=== PATIENT | female | born 1940 | race Caucasian/White ===

== ENCOUNTER → 2016-08-30 | Outpatient (CLI) | payer MEDICARE, OTHER | END | disposition home or self-care (01) | LOC: GMAB 11:55 | PROVIDERS: ATTEND Family Medicine | DX: I10 Essential (primary) hypertension (principal) ==

== ENCOUNTER → 2017-10-18 | Outpatient (CLI) | payer MEDICARE, OTHER | LOC: GMAE 14:16 | PROVIDERS: ATTEND Family Medicine | DX: I10 Essential (primary) hypertension (principal) ==

== ENCOUNTER → 2019-01-24 | Outpatient (CLI) | payer MEDICARE, OTHER | LOC: GMAE 10:32 | PROVIDERS: ATTEND Family Medicine | DX: I10 Essential (primary) hypertension (principal); E11.9 Type 2 diabetes mellitus without complications; E78.2 Mixed hyperlipidemia ==

== ENCOUNTER → 2019-02-05 | Outpatient (CLI) | payer MEDICARE, OTHER | LOC: GMAE 12:46 | PROVIDERS: ATTEND Family Medicine | DX: R94.6 Abnormal results of thyroid function studies (principal); I10 Essential (primary) hypertension ==

== ENCOUNTER → 2019-09-19 | Outpatient (CLI) | payer MEDICARE, OTHER ==
--- NOTE | 2019-09-20 09:20 | MRI ---
EXAM DESCRIPTION: Brain w/oContrast CLINICAL HISTORY: 78 years, Female, MYOPATHY COMPARISON: None available. TECHNIQUE: Multiplanar multi sequence images of the brain were obtained without gadolinium contrast. FINDINGS: Diffusion-weighted images show no diffusion restriction. Midline structures, including the corpus callosum, pituitary and brainstem, are unremarkable. Generalized age-related volume loss with ex vacuo prominence of the ventricles. No intraventricular mass. Physiologic vascular flow voids are noted. The internal auditory canals and cerebellopontine angles are unremarkable. There are no extra-axial fluid collections. There are irregular areas of increased T2/FLAIR signal involving periventricular and subcortical white matter in both cerebral hemispheres, nonspecific but likely related to chronic ischemic microvascular disease. There is no posterior fossa lesion. Visualized paranasal sinuses and orbits are unremarkable. There is no calvarial lesion. IMPRESSION: Age-related volume loss and chronic ischemic microvascular changes without cortical infarct, mass or other intracranial abnormality to explain provided history. Electronically signed by: Cruz Hernández MD 09/20/2019 9:19 AM CDT
== END ==
LOC: MRI 13:50
PROVIDERS: ATTEND Family Medicine
DX: G72.9 Myopathy, unspecified (principal); G31.1 Senile degeneration of brain, not elsewhere classified; I67.82 Cerebral ischemia

== ENCOUNTER → 2019-09-20 | Outpatient (CLI) | payer MEDICARE, OTHER | LOC: BFHH 14:00 | PROVIDERS: ATTEND Family Medicine | DX: G72.9 Myopathy, unspecified (principal); M62.3 Immobility syndrome (paraplegic); R26.2 Difficulty in walking, not elsewhere classified; E11.9 Type 2 diabetes mellitus without complications; F33.0 Major depressive disorder, recurrent, mild; F51.01 Primary insomnia ==

== ENCOUNTER → 2019-10-02 | Outpatient (CLI) | payer MEDICARE, OTHER ==
--- NOTE | 2019-10-03 15:39 | US ---
EXAM DESCRIPTION: Liver: ULTRASOUND. CLINICAL HISTORY: ABNORMAL RESULTS OF LIVER FUNCTIONS STUDIES COMPARISON: None. TECHNIQUE: Transabdominal scannin-dimensional and Doppler modes. FINDINGS: Gallbladder: normal size, shape, echogenicity; no intraluminal stones or sludge. No fluid around the gallbladder. No wall thickening. 2.6 mm. Non-tender with transducer pressure. Common bile duct: caliber 4.6 mm within normal limits. Liver: Heterogeneously increased echogenicity; focal increased echogenicity 5 x 4.5 mm diameter. Contour liver capsule smooth where seen. No fluid around the liver. Intrahepatic biliary ducts normal caliber. Doppler hepatopedal flow portal vein. 7 mm. Long axis right lobe 13.2 cm. Pancreas: normal size and echogenicity. Duct not seen. Right kidney: long axis measures 7.8 cm. Volume 83.2 mL. Increased echogenicity, equal to the liver. 10 mm cortical thickness. No echogenic stones; no hydronephrosis. Aorta proximal: 1.7 cm diameter normal caliber. IMPRESSION: 1. Heterogeneously increased echogenicity in the liver. Not enlarged. Focal echogenic lesion right liver most likely represents hemangioma. Consider follow-up MRI scan without and with gadolinium IV contrast if liver function continues to be abnormal. Vascularity and ducts and physiologic. Smooth capsule with no ascites. Pancreas is negative. 2. Increased echogenicity in the right renal cortex with cortical thinning but no hydronephrosis or echogenic stones. These may represent physiologic aging changes. Normal caliber of the proximal abdominal aorta. 3. Negative findings gallbladder and normal caliber of the common bile duct. Electronically signed by: Manpreet Huffman MD 10/03/2019 3:37 PM CDT
== END | disposition home or self-care (01) ==
LOC: US 12:46
PROVIDERS: ATTEND Family Medicine
DX: R94.5 Abnormal results of liver function studies (principal)

== ENCOUNTER 2019-10-24 06:07 | Observation (INO) | payer MEDICARE, OTHER ==
--- NOTE | 2019-10-24 06:48 | ED.PDOC ---
History of Present Illness - General Chief Complaint: General Stated Complaint: she couldn't get out of bed, back hurts Time Seen by Provider: 10/24/19 06:28 Source: patient Exam Limitations: no limitations - History of Present Illness Initial Comments: The patient is a 78-year-old female presented emergency room secondary to progressive generalized weakness. Apparently the patient has a diagnosis of polymyositis diagnosed with Dr. Mcmullen. She has severe proximal musculature weakness. The patient is unable to stand and walk. She is even been unable to turn herself to roll over in bed. She is developing significant excoriation to her posterior secondary to this. No shortness of breath. No chest pain. No syncope. The patient was unable to roll over in bed to get a drink of water this morning and she panicked. She was alone at home by herself. She reports that she has been able to hire care during the day to help her move around but at night she is by herself, and she simply cannot move around at this point. The patient reports that she was supposed to be getting IV daily steroids. The hospital under Dr. Mcmullen's direction however she had a falling out with the infusion nurses and has stopped getting them. The patient is not certain that she can make it at home alone by herself anymore. Apparently the patient did do a stent and encompass a month or 2 ago without any significant benefit. The patient has recently had MRIs of the brain and imaging of the liver as well. I do not have any the details of the work-up otherwise done by Dr. Mcmullen. Laboratory work from the clinic is not yet available. The patient is feeling much better simply being up here where we can help her move around. Timing/Duration: constant, getting worse Severity: severe Improving Factors: nothing Worsening Factors: nothing Associated Symptoms: weakness Allergies/Adverse Reactions: Allergies Morphine Allergy (Verified 10/24/19 06:30) Home Medications: Ambulatory Orders Citalopram Hydrobromide [Celexa] 40 mg PO QD 02/12/12 Lisinopril 10 mg PO DAILY 02/12/12 Zolpidem Tartrate [Ambien] 10 mg PO HS 02/12/12 Atorvastatin Calcium [Lipitor] 10 mg PO 10/24/19 Escitalopram [Lexapro] 20 mg PO 10/24/19 Review of Systems - Review of Systems Constitutional: States: malaise EENTM: States: no symptoms reported Respiratory: States: no symptoms reported Cardiology: States: no symptoms reported Gastrointestinal/Abdominal: States: no symptoms reported Genitourinary: States: no symptoms reported - The patient does wear an adult diaper at night as she is unable to get out of bed to get to the bathroom Musculoskeletal: States: see HPI Skin: States: see HPI Neurological: States: anxiety Endocrine: States: no symptoms reported All other Systems: No Change from Baseline Past Medical History (General) - Patient Medical History Hx Seizures: No Hx Stroke: No Hx Dementia: Yes Hx Asthma: No Hx of COPD: Yes - hx smoker for 50 years Hx Cardiac Disorders: No Hx Congestive Heart Failure: No Hx Pacemaker: No Hx Hypertension: Yes Hx Thyroid Disease: No Hx Diabetes: Yes - hx Hx Gastroesophageal Reflux: No Hx Renal Disease: No Hx Cancer: No Hx of HIV: No Hx Hepatitis C: No Hx MRSA: No Surgical History: appendectomy, tonsillectomy, Hysterectomy - Vaccination History Hx Tetanus, Diphtheria Vaccination: Yes - 3 years ago Hx Influenza Vaccination: Yes Hx Pneumococcal Vaccination: Yes - Social History Hx Tobacco Use: Yes - quit 5 years ago after 50 years of smoking Hx Chewing Tobacco Use: No Hx Alcohol Use: Yes - social Hx Substance Use: No Hx Substance Use Treatment: No Hx Depression: Yes Hx Physical Abuse: No Hx Emotional Abuse: No Hx Suspected Abuse: No - Female History Patient : No - Triage Comment ED Triage Comment: states she has private care takers out of [place] during the day Family Medical History - Family History Mother Family History: Unknown Physical Exam - Physical Exam General Appearance: Alert, Anxious, No apparent distress Eye Exam: bilateral normal Ears, Nose, Throat: hearing grossly normal, normal pharynx Neck: full range of motion, supple Respiratory: lungs clear, normal breath sounds, no respiratory distress, no ac cessory muscle use Cardiovascular/Chest: normal peripheral pulses, regular rate, rhythm, no edema Peripheral Pulses: radial,right: 2+, radial,left: 2+, dorsalis pedis,right: 2+, dorsalis pedis,left: 2+ Gastrointestinal/Abdominal: non tender, soft Rectal Exam: deferred Back Exam: no CVA tenderness Extremity: normal range of motion - The patient has significantly limited active motion at the knees and hips as well as the shoulder girdle. 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 Skin Exam: normal color - With the exception of her excoriated buttocks from being unable to get to the bathroom. Comments: Vital Signs - 24 hr 10/24/19 06:07 Temperature 97.5 F L Pulse Rate [ 91 H monitor] Respiratory 16 Rate Blood Pressure 164/65 [Left Arm] O2 Sat by Pulse 87 L Oximetry Progress - Progress Progress: 10/24/19 06:53 The patient is a 78-year-old female presented emergency room secondary to her gradual progressive weakness, presumed to be associated with polymyositis. We will do laboratory work here as the patient has had issues with pneumonias and urinary tract infections in the past complicating her care. The patient additionally does appear to have some mild hypoxia at baseline. I am uncertain if she is having ventilatory issues as well. She did did a pparently have many years of smoking. The patient will be tested for coronavirus and we will do an ABG and the patient will receive a breathing treatment and see if this helps. Chest x-ray will also be done. Laboratory work is being sent off. The patient had a Feliz catheter placed to check for urinary tract infection but also to allow for healing of her sacral excoriations. The patient will need a social professionals consultation once they are here at the hospital to see if short-term usp care can be arranged for the patient as she is unable to care for herself at night obviously at this point. If no other pathology is found then resumption of the steroid regimen as per Dr. Mcmullen's recommendations are likely recommended. The patient will be followed by the oncoming ER physician. 10/24/19 06:55 emilie villa [phone] Departure - Departure Clinical Impression: Polymyositis, Inability to perform activities of daily living Decubitus skin ulcer Qualifiers: Pressure injury location: sacral region Pressure injury stage: stage 2 Qualified Code(s): L89.152 - Pressure ulcer of sacral region, stage 2 Disposition: Discharge to Home or Self Care Departure Forms: ED Discharge - Pt. Copy, Patient Portal Self Enrollment Referrals: KATERINA OSMAN MD [Primary Care Provider] - 1-2 Weeks Home Medications: Ambulatory Orders Citalopram Hydrobromide [Celexa] 40 mg PO QD 02/12/12 Lisinopril 10 mg PO DAILY 02/12/12 Zolpidem Tartrate [Ambien] 10 mg PO HS 02/12/12 Atorvastatin Calcium [Lipitor] 10 mg PO 10/24/19 Escitalopram [Lexapro] 20 mg PO 10/24/19
[2019-10-24] MEDS ORDERED: IPRATROPIUM/ALBUTEROL 3 ML VIAL NEB ONE ×2 (06:56→08:46)
--- NOTE | 2019-10-24 07:22 | RAD ---
PROCEDURE: XR Chest, 1 View CLINICAL INDICATION: The patient is 78 years old and is Female; increased generalized weakness MAIN TECHNIQUE: Frontal view of the chest. COMPARISON: No relevant prior studies available. FINDINGS: LUNGS: Mild prominence of the interstitial markings. PLEURAL SPACE: Small LEFT pleural effusion. HEART: The heart size is normal. MEDIASTINUM: The mediastinal contour is normal. BONES/JOINTS: There are degenerative changes of the spine identified. VASCULATURE: Pulmonary vascularity is not engorged. IMPRESSION: 1. Small LEFT pleural effusion. 2. Mild prominence of the interstitial markings. This could be from interstitial lung disease or mild pulmonary vascular congestion. Electronically signed by: Jairon Liu MD 10/24/2019 7:20 AM CDT
[2019-10-24] MEDS ORDERED: POTASSIUM CHLORIDE ELIXIR 20 MEQ/15 ML UD PO ONE (08:04)
[2019-10-24] MEDS ORDERED: DEXAMETHASONE INJ 10 MG/ML VIAL IV ONE (08:37)
[2019-10-24] MEDS: DEXAMETHASONE INJ 10 MG/ML VIAL IV ONE ×2 (08:49→08:52)
--- NOTE | 2019-10-24 09:21 | ED.PDOC ---
History of Present Illness - General Chief Complaint: General Stated Complaint: she couldn't get out of bed, back hurts Time Seen by Provider: 10/24/19 06:28 - History of Present Illness Initial Comments: 78 yo F with Polymositis, worsening weakness. Could not get out of bed this morning so came to hospital. Has daytime caretakers, no caretakers at night. Allergies/Adverse Reactions: Allergies Morphine Allergy (Verified 10/24/19 06:30) Home Medications: Ambulatory Orders Citalopram Hydrobromide [Celexa] 40 mg PO QD 02/12/12 Lisinopril 10 mg PO DAILY 02/12/12 Zolpidem Tartrate [Ambien] 10 mg PO HS 02/12/12 Atorvastatin Calcium [Lipitor] 10 mg PO 10/24/19 Escitalopram [Lexapro] 20 mg PO 10/24/19 Review of Systems - Review of Systems Constitutional: States: malaise, weakness EENTM: Denies: blurred vision, throat pain, mouth pain Respiratory: Denies: cough, short of breath, wheezing Cardiology: Denies: chest pain, palpitations Gastrointestinal/Abdominal: Denies: abdominal pain, nausea, vomiting Musculoskeletal: States: back pain Skin: Denies: change in color Neurological: Denies: anxiety, depressed Endocrine: Denies: increased urine, unexplained weight gain, unexplained weight loss Past Medical History (General) - Patient Medical History Hx Seizures: No Hx Stroke: No Hx Dementia: Yes Hx Asthma: No Hx of COPD: Yes - hx smoker for 50 years Hx Cardiac Disorders: No Hx Congestive Heart Failure: No Hx Pacemaker: No Hx Hypertension: Yes Hx Thyroid Disease: No Hx Diabetes: Yes - hx Hx Gastroesophageal Reflux: No Hx Renal Disease: No Hx Cancer: No Hx of HIV: No Hx Hepatitis C: No Hx MRSA: No Surgical History: appendectomy, tonsillectomy, Hysterectomy - Vaccination History Hx Tetanus, Diphtheria Vaccination: Yes - 3 years ago Hx Influenza Vaccination: Yes Hx Pneumococcal Vaccination: Yes - Social History Hx Tobacco Use: Yes - quit 5 years ago after 50 years of smoking Hx Chewing Tobacco Use: No Hx Alcohol Use: Yes - social Hx Substance Use: No Hx Substance Use Treatment: No Hx Depression: Yes Hx Physical Abuse: No Hx Emotional Abuse: No Hx Suspected Abuse: No - Female History Patient : No - Triage Comment ED Triage Comment: states she has private care takers out of [place] during the day Family Medical History - Family History Mother Family History: Unknown Physical Exam - Physical Exam General Appearance: Alert, Comfortable Neck: non-tender, supple Respiratory: chest non-tender, lungs clear, normal breath sounds, no respiratory distress Cardiovascular/Chest: normal peripheral pulses, regular rate, rhythm, no edema, no gallop, no JVD, no murmur Peripheral Pulses: radial,right: 2+, radial,left: 2+ Gastrointestinal/Abdominal: normal bowel sounds, non tender, soft Extremity: other - proximal muscle weakness. Neurologic: vault person II-XII nml as tested, alert, normal mood/affect, oriented x 3 Progress - Progress Progress: 10/24/19 09:18 patient ABG shows Resp alkalosis. Hypokalemia - 2.9, no significant ekg changes. Will give 40 meq of potassium x 1. Discussed with Dr. Palacios. Follows Dr. Casper, was originally on 10 mg of dexamethasone daily for 5 days, then weekly after that. She quit this many weeks ago after having an argument with a staff member. Left message at Dr. Drake bland office. will give one dose of 10 dexamethasone IV now. Attempted to remove oxygen saturations decrease to 88%. no wheezing, no evidence of pneumonia on cxr. denies cough, fever, dyspnea. Will get d-dimer, due to her immobility to rule out PE. COVID negative. I suspect underlying cause is related to her 50 pack year history. Urine appears dirty; however, this may contribute to her underlying weakness. Will get blood culture and treat UTI with ceftriaxone now. Laboratory Results WBC 11.6 K/mm3 (4.8-10.8) H 10/24/19 07:00 RBC 3.74 M/mm3 (4.20-5.40) L 10/24/19 07:00 Hgb 11.6 gm/dL (12.0-16.0) L 10/24/19 07:00 Hct 34.5 % (36.0-47.0) L 10/24/19 07:00 MCV 92.4 fl (81.0-99.0) 10/24/19 07:00 MCH 31.2 pg (27.0-31.0) H 10/24/19 07:00 MCHC 33.7 g/dL (33.0-37.0) 10/24/19 07:00 RDW 13.0 % (11.5-14.5) 10/24/19 07:00 Plt Count 493 K/mm3 (130-400) H 10/24/19 07:00 MPV 7.5 fl (7.40-10.4) 10/24/19 07:00 Absolute Neuts (auto) 10.00 K/uL (1.8-6.8) H 10/24/19 07:00 Absolute Lymphs (auto) 0.80 K/uL (1.0-3.4) L 10/24/19 07:00 Absolute Monos (auto) 0.80 K/uL (0.2-0.8) 10/24/19 07:00 Absolute Eos (auto) 0.00 K/uL (0.0-0.4) 10/24/19 07:00 Absolute Basos (auto) 0.00 K/uL (0.0-0.1) 10/24/19 07:00 Neutrophils % 86.1 % (42.0-78.0) H 10/24/19 07:00 Lymphocytes % 6.9 % (20.0-50.0) L 10/24/19 07:00 Monocytes % 6.5 % (2.0-9.0) 10/24/19 07:00 Eosinophils % 0.2 % (1.0-5.0) L 10/24/19 07:00 Basophils % 0.3 % (0.0-2.0) 10/24/19 07:00 ESR 45 mm/hr (0-30) H 10/24/19 07:00 D-Dimer, Quantitative 317.0 ng/ml (131-400) 10/24/19 07:00 pCO2 25 mmHg (32-45) L 10/24/19 07:32 pO2 143 mmHg (83-108) H* 10/24/19 07:32 HCO3 21.5 mmol/L 10/24/19 07:32 ABG pH 7.538 (7.35-7.45) H 10/24/19 07:32 ABG O2 Saturation 99.6 % (95.0-99.0) H 10/24/19 07:32 ABG Base Excess 0.0 mmol/L 10/24/19 07:32 ABG Deoxyhemoglobin 0.4 % (0.0-5.0) 10/24/19 07:32 Oxyhemoglobin % 98.0 % (94.0-98.0) 10/24/19 07:32 Carboxyhemoglobin % 1.0 % (0.5-1.5) 10/24/19 07:32 Methemoglobin % Sat 0.6 % (0.0-1.5) 10/24/19 07:32 Calc Total Hemoglobin 11.3 g/dL (12.0-16.0) L 10/24/19 07:32 Sodium 134 mmol/L (135-145) L 10/24/19 07:00 Potassium 2.9 mmol/L (3.6-5.0) L 10/24/19 07:00 Chloride 98 mmol/L (101-111) L 10/24/19 07:00 Carbon Dioxide 25 mmol/L (21-31) 10/24/19 07:00 Anion Gap 13.9 (12-18) 10/24/19 07:00 BUN 7 mg/dL (7-18) 10/24/19 07:00 Creatinine 0.43 mg/dL (0.6-1.3) L 10/24/19 07:00 BUN/Creatinine Ratio 16.3 (10-20) 10/24/19 07:00 Random Glucose 104 mg/dL (70-105) 10/24/19 07:00 Serum Osmolality 266.5 mOsm/L (275-295) L 10/24/19 07:00 Lactic Acid 1.0 mmol/L (0.5-2.2) 10/24/19 07:00 Calcium 7.7 mg/dL (8.4-10.2) L 10/24/19 07:00 Magnesium 1.9 mg/dL (1.8-2.5) 10/24/19 07:00 Total Bilirubin 0.9 mg/dL (0.2-1.0) 10/24/19 07:00 AST 111 IU/L (10-42) H 10/24/19 07:00 ALT 142 IU/L (10-60) H 10/24/19 07:00 Alkaline Phosphatase 94 IU/L (42-121) 10/24/19 07:00 Creatine Kinase 2800 IU/L (26-140) H* 10/24/19 07:00 CK-MB (CK-2) 97.9 ng/mL (0.0-4.4) H* 10/24/19 07:00 CK-MB (CK-2) % 3.50 % (0.0-4.3) 10/24/19 07:00 Troponin I 0.02 ng/mL (0.01-0.05) 10/24/19 07:00 C-Reactive Protein 7.8 mg/dL (0-1.0) H 10/24/19 07:00 B-Natriuretic Peptide 36.9 pg/ml (0-100) 10/24/19 07:00 Serum Total Protein 5.4 gm/dL (6.4-8.2) L 10/24/19 07:00 Albumin 2.4 g/dl (3.2-5.5) L 10/24/19 07:00 Globulin 3.0 gm/dL (2.3-3.5) 10/24/19 07:00 Albumin/Globulin Ratio 0.8 (1.1-1.9) L 10/24/19 07:00 TSH 3.70 uIU/mL (0.34-5.60) 10/24/19 07:00 Urine Color Yellow (Yellow) 10/24/19 07:40 Urine Appearance Sl cloudy (Clear) 10/24/19 07:40 Urine pH 6.0 (4.5-7.8) 10/24/19 07:40 Ur Specific [place] 1.025 (1.005-1.030) 10/24/19 07:40 Urine Protein 30 mg/dL 10/24/19 07:40 Urine Glucose (UA) Negative mg/dL (Negative) 10/24/19 07:40 Urine Ketones 80 mg/dL (NEGATIVE) H 10/24/19 07:40 Urine Blood Large (Negative) H 10/24/19 07:40 Urine Nitrite Negative 10/24/19 07:40 Urine Bilirubin Small (NEGATIVE) H 10/24/19 07:40 Urine Urobilinogen 0.2 mg/dL (0.2-1.0) 10/24/19 07:40 Ur Leukocyte Esterase Negative (Negative) 10/24/19 07:40 Urine RBC 0-1 /hpf 10/24/19 07:40 Urine WBC 0-1 /hpf 10/24/19 07:40 Ur Epithelial Cells >50 /hpf 10/24/19 07:40 Amorphous Sediment 2+ 10/24/19 07:40 Urine Bacteria 2+ H 10/24/19 07:40 Departure - Departure Clinical Impression: Polymyositis, Inability to perform activities of daily living, Hypokalemia, Hypoxia Decubitus skin ulcer Qualifiers: Pressure injury location: sacral region Pressure injury stage: stage 2 Qualified Code(s): L89.152 - Pressure ulcer of sacral region, stage 2 Urinary tract infection Qualifiers: Urinary tract infection type: site unspecified Hematuria presence: with hematuria Qualified Code(s): N39.0 - Urinary tract infection, site not specified Time of Disposition: :15 Disposition: Admit Patient Condition: Fair Departure Forms: Patient Portal Self Enrollment Home Medications: Ambulatory Orders Citalopram Hydrobromide [Celexa] 40 mg PO QD 02/12/12 Lisinopril 10 mg PO DAILY 02/12/12 Zolpidem Tartrate [Ambien] 10 mg PO HS 02/12/12 Atorvastatin Calcium [Lipitor] 10 mg PO 10/24/19 Escitalopram [Lexapro] 20 mg PO 10/24/19 Decision To Admit - Decistion To Admit Decision to Admit Reason: Medical Nature - hypokalemia Decision to Admit Date: 10/24/19 Decision to Admit Time: 09:20
[2019-10-24] MEDS ORDERED: cefTRIAXone SODIUM 1 GM in SODIUM CHL 0.9% 50ML MIN-BAG+ 50 ML IVPB ONE (09:35)
--- NOTE | 2019-10-24 11:05 | HP ---
SUPERVISING PHYSICIAN: Romie Tolentino MD CHIEF COMPLAINT: Increasing weakness. HISTORY OF PRESENT ILLNESS: Ms. Waters is a 78-year-old female patient with a past medical history of polymyositis under treatment with Dr. Casper. She has been recently getting Decadron treatments through the infusion clinic, but her urinalysis muscle strength has deteriorated significantly where she is unable to even get out of bed without assistance. She endorses that she has help during the day, but not at night and last night, she was unable to even roll over in bed and called 911. Workup in the Emergency Room showed she had a mild leukocytosis of 11,600 with a slight left shift, sedrate elevated at 45. She was apparently having some mild shortness of breath initially in the ER showing saturations of 87% on room air. Laboratory studies included D-dimer that was within normal limits. Blood gas analysis on nasal cannula that showed pO2 143 with pCO2 of 25, saturation 99%. Her chemistries did show a moderate hypokalemia with potassium 2.9. Sodium was 134. CPK was elevated at 2800, but review of her past records show that is fairly chronic for her given her diagnosis of polymyositis. She did have a C-reactive protein that was elevated at 7.8. Renal function showed creatinine 0.43. Liver functions were all showing elevation with AST 111, ALT 142. Review of her past medical records and labs show those are chronic levels. Single view chest x-ray in the Emergency Room per radiologic interpretation showed a small left pleural effusion with some mild prominence of interstitial markings which could represent some interstitial lung disease versus mild pulmonary vascular congestion. Urinalysis showed cloudy urine with 80 ketones, large amount of blood, small amount of bilirubin and microscopic revealed 2+ bacteria and that was on a cath specimen. She was started on antibiotics to include Rocephin for concerns for early urinary tract infection and given oral potassium for her hypokalemia. Given her inability to function at home by herself, the ER physician requested the patient be placed in observation at least overnight for help with correction of her potassium levels and further assistance in placing in a intermediate unit. PAST MEDICAL HISTORY: 1. Recent diagnosis of polymyositis, etiology uncertain. 2. Type 2 diabetes mellitus on diet therapy. 3. History of bladder cancer. 4. History of osteopenia. PAST SURGICAL HISTORY: 1. Hysterectomy in 1979. 2. Appendectomy in 1959. 3. Tonsillectomy in 1949. 4. Bilateral tubal ligation in 2003. 5. Colonoscopy. HOME MEDICATIONS: 1. Lexapro 20 mg daily. 2. Lipitor 10 mg daily. 3. Lisinopril 10 mg daily. ALLERGIES: MORPHINE. FAMILY HISTORY: Father at age 91 due to cardiac complications. Mother had a history of coronary artery disease and hypertension. She has two daughters who are healthy. 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 She does have two children. She has a past history of cigarette smoking, but quit in 2012 and only drinks alcohol on a very rare social basis. No illicit drug use mentioned. REVIEW OF SYSTEMS: CONSTITUTIONAL: Positive for general malaise. Negative for any fevers, chills. HEENT: Negative for headaches, sore throats, earaches, nasal congestion, vision changes. RESPIRATORY: Negative for coughing, wheezing or shortness of breath. CARDIOVASCULAR: Negative for chest pain, palpitations or syncopal episodes. GASTROINTESTINAL: Negative for nausea, vomiting, diarrhea, constipation or abdominal pain. GENITOURINARY: Negative for dysuria, hematuria, but has some incontinence and utilizes a brief at night. MUSCULOSKELETAL: As noted in history of present illness. SKIN: Skin tear to her coccyx region. No obvious other skin breakdown. No reported lesions, rashes, moles or unexplained changes. NEUROLOGIC: Positive for ongoing anxiety issues, but negative for vision changes, syncopal episode other than the increasing muscle lower extremity weakness peripherally as noted history of present illness. No other reported deficits. HEMATOLOGIC: Negative for easy bruising, unexplained bleeding or transfusion reactions. PHYSICAL EXAMINATION: VITAL SIGNS: On initial presentation to the Emergency Room, she was afebrile at 97.5, heart rate 91, blood pressure 164/65, respirations 16. Initial saturations on room air 87%. With nasal cannula at 2 liters, saturation was 98%. GENERAL: The patient looks to be in no acute distress. She is tired in appearance, somewhat unkept, a little anxious. HEENT: Tympanic membranes clear bilaterally. Oropharynx is pink, moist without any lesions. NECK: Supple, nontender with full range of motion. No jugular venous distention noted. RESPIRATORY: Lung sounds are clear to auscultation bilaterally, just slightly diminished towards the bases. No obvious rhonchi, wheezes or rales. CARDIOVASCULAR: Regular rate and rhythm without any appreciable murmurs, gallops, or rubs. ABDOMEN: Soft, nontender. Positive bowel sounds. RECTAL: Deferred. BACK: No CVA or vertebral tenderness. EXTREMITIES: There is no cyanosis, clubbing or edema. The patient was noted initially in the Emergency Room to be weak, but active motion. No tenderness or complaints with passive range of motion. NEUROLOGIC: Cranial nerves II-XII are grossly intact. Facial features are symmetrical. Extraocular movements are within normal limits. There is no nystagmus noted. The patient is alert and oriented times three. SKIN: Warm, pink and dry with a little excoriation noted in buttocks. No obvious decubitus ulcer is noted. LABORATORY: White count 11,600, hemoglobin 11.6, hematocrit 34.5, platelet count 493,000. Differential does show a left shift with ESR 45. Coagulation studies show normal D-dimer. Blood gas analysis on nasal cannula showed pH 7.53, pCO2 21, pO2 143, pCO2 25, saturation 99%. Chemistry shows sodium 134, potassium 2.9, normal anion gap, BUN 7, creatinine 0.43, lactic acid normal at 1.0, calcium 7.7 corrected for low albumin of 2.4 to 8.1. Magnesium 1.9, AST 111, ALT 142, CPK 2800, troponin 0.02, TSH normal at 3.70. Urinalysis on a cath specimen showed cloudy yellow with 80 ketones, large amount of blood, small amount of bilirubin. Microscopic revealed no WBCs, RBCs, greater than 50 epithelials with 2+ bacteria. MICROBIOLOGY: C. difficile toxin A and B was negative. Blood cultures pending. Urine culture pending. Respiratory panel was negative for all bacterial and viral targets tested including COVID and influenza. RADIOLOGY: Chest x-ray in the Emergency Room per radiologic interpretation showed small left pleural effusion with some mild prominence of the interstitial markings that could be from interstitial lung disease versus mild pulmonary vascular congestion. ASSESSMENT: 1. Electrolyte imbalance including moderate hypokalemia, etiology uncertain. 2. Increasing weakness with history of polymyositis, etiology uncertain, possibly exacerbated by #1. 3. Possible urinary tract infection with cultures pending. 4. History of hypertension. 5. Diabetes mellitus, type 2, on diet therapy alone. PLAN: Ms. Waters is going to be placed in observation to help correct her potassium levels. She was given oral potassium in the Emergency Room. We will start her on some IV fluids to help with the potassium level as well as treat some mild hyponatremia. She has a social consult in the works with pending acceptance to [facility] for intermediate placement once stable. I did talk to Dr. Palacios, her primary care physician, and she was given a dose of Decadron in the ER as she has been on treatment by Dr. Casper. It looks like initial request for treatment was 09/25 with Decadron, Protonix and Zofran for 5 days and then q.6 weeks. We will need to followup with Dr. Palacios to find out if this needs to be continued. She did get a dose of Decadron in the ER prior to placement in observation. Cultures are pending. She will be on DVT prophylaxis per protocol. She will be on Protonix for GI protection per protocol. I anticipate her length of stay to be one to two days with possible discharge tomorrow with placement at [facility]. Until then, we will continue to monitor and treat as needed. [facility][id number] [facility]
[2019-10-24] MEDS ORDERED: ONDANSETRON INJ 4 MG/2 ML VIAL IV PRN (13:06)
[2019-10-24] MEDS ORDERED: ACETAMINOPHEN 325 MG TAB PO PRN (13:06)
[2019-10-24] MEDS ORDERED: SODIUM CHLORIDE 0.9% (FLUSH) 10 ML SYG IV PRN (13:06)
[2019-10-24] MEDS ORDERED: ALBUTEROL SULFATE 2.5 MG/3 ML VIAL NEB PRN (13:06)
[2019-10-24] MEDS ORDERED: cefTRIAXone SODIUM 1 GM in SODIUM CHL 0.9% 50ML MIN-BAG+ 50 ML IVPB SCH (13:30)
[2019-10-24] MEDS ORDERED: IV SET AND CAP CHANGE INJ INJ SCH (13:30)
[2019-10-24] MEDS ORDERED: AZITHROMYCIN IV 500 MG in SODIUM CHLORIDE 0.9% 250ML 250 ML IVPB SCH (14:30)
[2019-10-24] MEDS ORDERED: GLUCAGON INJ 1 MG VIAL SUBCU PRN (14:45)
[2019-10-24] MEDS ORDERED: DEXTROSE 50% 25 GM/50 ML SYG IV PRN (14:45)
[2019-10-24] MEDS: INSULIN LISPRO 100 UNITS/ML PEN SUBCU SCH ×2 (16:41→21:03)
[2019-10-24] MEDS: KCL 40MEQ/NS 1,000 ML IVS PRN (16:41)
[2019-10-24] MEDS: ALBUTEROL SULFATE 2.5 MG/3 ML VIAL NEB SCH ×2 (16:45→19:55)
[2019-10-24] MEDS ORDERED: ATORVASTATIN 10 MG TAB ONE (19:03)
[2019-10-24] MEDS ORDERED: ATORVASTATIN 10 MG TAB PO SCH (21:00)
[2019-10-25] MEDS: KCL 40MEQ/NS 1,000 ML IVS PRN (03:14)
[2019-10-25] MEDS ORDERED: ESCITALOPRAM 10 MG TAB PO SCH ×3 (06:30→09:00)
[2019-10-25] MEDS: INSULIN LISPRO 100 UNITS/ML PEN SUBCU SCH (08:31)
[2019-10-25] MEDS: ALBUTEROL SULFATE 2.5 MG/3 ML VIAL NEB SCH (08:40)
[2019-10-25 09:00] VITALS: BP 106/67; TEMP 97.4; O2SAT 96
[2019-10-25] MEDS ORDERED: LISINOPRIL 10 MG TAB PO SCH (09:00)
--- NOTE | 2019-10-26 12:49 | DS ---
SUPERVISING PHYSICIAN: Romie Tolentino M.D. ADMISSION DIAGNOSIS: 1. Electrolyte imbalance including moderate hypokalemia, etiology uncertain. 2. Increasing weakness with history of polymyositis, etiology uncertain, possibly exacerbated by #1. 3. Possible urinary tract infection with cultures pending. 4. History of hypertension. 5. Diabetes mellitus, type 2, on diet therapy alone. DISCHARGE DIAGNOSIS: 1. Electrolyte imbalance with a moderate hypokalemia, resolved with fluids, etiology uncertain. 2. Chronic polymyositis, etiology uncertain, with exacerbation resulting in the patient's inability to perform activities of daily living. 3. Mild urinary tract infection, cultures pending, with the patient discharged on Cefdinir. 4. Chronic hypertension, stable. 5. Diabetes mellitus, type 2, on diet therapy alone. REASON FOR HOSPITALIZATION: Ms. Waters is a 78-year-old female patient with a past medical history of polymyositis under treatment with Dr. Casper. She has been recently getting Decadron treatments through the infusion clinic, but her urinalysis muscle strength has deteriorated significantly where she is unable to even get out of bed without assistance. She endorses that she has help during the day, but not at night and last night, she was unable to even roll over in bed and called 911. Workup in the Emergency Room showed she had a mild leukocytosis of 11,600 with a slight left shift, sed rate elevated at 45. She was apparently having some mild shortness of breath initially in the ER showing saturations of 87% on room air. Laboratory studies included D-dimer that was within normal limits. Blood gas analysis on nasal cannula that showed pO2 143 with pCO2 of 25, saturation 99%. Her chemistries did show a moderate hypokalemia with potassium 2.9. Sodium was 134. CPK was elevated at 2800, but review of her past records show that is fairly chronic for her given her diagnosis of polymyositis. She did have a C-reactive protein that was elevated at 7.8. Renal function showed creatinine 0.43. Liver functions were all showing elevation with AST 111, ALT 142. Review of her past medical records and labs show those are chronic levels. Single view chest x-ray in the Emergency Room per radiologic interpretation showed a small left pleural effusion with some mild prominence of interstitial markings which could represent some interstitial lung disease versus mild pulmonary vascular congestion. Urinalysis showed cloudy urine with 80 ketones, large amount of blood, small amount of bilirubin and microscopic revealed 2+ bacteria and that was on a cath specimen. She was started on antibiotics to include Rocephin for concerns for early urinary tract infection and given oral potassium for her hypokalemia. Given her inability to function at home by herself, the ER physician requested the patient be placed in observation at least overnight for help with correction of her potassium levels and further assistance in placing in a nursing home unit. LABORATORY STUDIES: Discharge white count was 14,000, hemoglobin 10, hematocrit 29.4, platelet count 445,000. Again, she did get a dose of steroids in the Emergency Room on admission. ESR was 45. Chemistries showed sodium at 133, potassium normalized to 5, creatinine less than 0.4. Blood sugars ranged between 137 and 265. C reactive protein was 7.8. MICROBIOLOGY: Urine culture was pending. C-Difficile toxin A and B was negative for toxin and antigen. Respiratory panel was negative for all bacterial and viral targets as tested. Blood cultures were negative at 24 hours. RADIOLOGY: She had 1 chest x-ray on admission per radiology interpretation showed small left pleural effusion with some mild prominence of the interstitial markings. No obvious signs of pneumonia. HOSPITAL COURSE: Ms. Waters was admitted for increasing weakness which was more likely due to chronic polymyositis, but she also had a moderate hypokalemia and hypomagnesemia which was treated with the hypokalemia resolved and normalizing to baseline and her sodium improving. In the Emergency Room, she was given a dose of Dexamethasone. She was placed in observation. She was also given a dose of azithromycin and Rocephin for questionable upper respiratory infection and urinary tract infection. Clinically her electrolytes had improved. She was still showing significant weakness and given the fact that she cannot function by herself and lives alone, arrangements were made to have her admitted to [facility]. It was felt that on the morning of discharge and transfer to [facility], the patient was clinically stable to continue with outpatient management. PLAN: Ms. Waters was discharged to be admitted to nursing home through [facility]. I did notify Dr. Palacios's office of the patient's admission to [facility] and the fact that she is still under the care of Dr. Casper for 6 weeks for the Decadron treatment for polymyositis. I am not sure what portion of the treatment she is in, but again she was given a dose of Dexamethasone which she is scheduled to have weekly. Those will need to be followed-up with to ensure that she continues to final treatment on that. All of her medications were continued as prior to hospitalization, but will need to be verified and as well as p.r.n. medications written for jail placement. I did order physical therapy for consultation and treatment. She is to be on an ADA diet. She is to followup with Dr. Palacios to be scheduled through [facility]. Medications that were written and prescribed on discharge include: 1. Lexapro 20 mg daily. 2. Lipitor 10 mg at bedtime. 3. Lisinopril 10 mg daily. 4. Zofran 4 mg every 6 hours p.r.n. for nausea. 5. Albuterol nebulizer treatments every 4 hours as needed 2.5 mg p.r.n. 6. Tylenol 325 mg every 6 hours as needed. 7. Continue antibiotic coverage for questionable urinary tract infection with cultures pending. She was written for Cefdinir 300 mg b.i.d. for an additional 5 day treatment course. Again, she will need followup for the urinary tract infection as well as followup with Dr. Casper in regards to the treatment with the steroid regimen. Condition on discharge was stable and improved. DISPOSITION: The patient is discharged to [facility]. [id number]
== END 2019-10-25 11:25 ==
LOC: ER 06:07 → INTOOBSV 11:03 → MS 11:03
PROVIDERS: ADMIT Nurse Practitioner Family; ATTEND Nurse Practitioner Family
DX: E87.6 Hypokalemia (principal); E87.8 Other disorders of electrolyte and fluid balance, not elsewhere classified; M33.20 Polymyositis, organ involvement unspecified; N39.0 Urinary tract infection, site not specified; B96.89 Other specified bacterial agents as the cause of diseases classified elsewhere; I10 Essential (primary) hypertension; E11.65 Type 2 diabetes mellitus with hyperglycemia; E83.42 Hypomagnesemia; L89.152 Pressure ulcer of sacral region, stage 2; F03.90 Unspecified dementia, unspecified severity, without behavioral disturbance, psychotic disturbance, mood disturbance, and anxiety; J44.9 Chronic obstructive pulmonary disease, unspecified; J90 Pleural effusion, not elsewhere classified; Z11.59 Encounter for screening for other viral diseases; Z79.899 Other long term (current) drug therapy; Z88.6 Allergy status to analgesic agent; Z74.09 Other reduced mobility; Z60.2 Problems related to living alone; Z85.51 Personal history of malignant neoplasm of bladder; Z87.891 Personal history of nicotine dependence
CPT/HCPCS: 96366 ×2; 96367; 96365; 96375; 96376; 96372; J7611 ×2; J0696; J7050 ×2; J1100; J0456; J7620; J1815; J3480 ×2; 85379; 80048 ×2; 82553; 80053; 82948 ×3; 82085; 36415 ×5; 80074; 81001; 86140; 85025 ×2; 82550 ×2; 87040; 83735; 85651; 84443; 84484; 83880; 36416 ×3; 87324; 83605; 71045; 94640 ×4; 94760 ×3; 82803; 36600; 82805; 97162; 99285; 93005; G0378; 87449; 87635

== ENCOUNTER → 2019-12-13 | Outpatient (CLI) | payer MEDICARE, OTHER | LOC: GT 16:01 | PROVIDERS: ATTEND Family Medicine | DX: M33.21 Polymyositis with respiratory involvement (principal) ==

== ENCOUNTER 2019-12-16 11:20 | Emergency (ER) | payer MEDICARE, OTHER ==
--- NOTE | 2019-12-16 11:40 | ED.PDOC ---
History of Present Illness - General Time Seen by Provider: 12/16/19 11:21 Source: patient, RN notes reviewed, Vital Signs reviewed, EMS notes reviewed, assisted records, old records - History of Present Illness Comments: 79 yo F with history of polymyositis comes in with 5 days of cough. was diagnosed with COVID a few days ago. Denies shortness of breath, headache, body aches or fever. States overall she feels well. just has mild cough. Wears oxygen at home prn. Allergies/Adverse Reactions: Allergies Morphine Allergy (Verified 12/16/19 12:11) Home Medications: Ambulatory Orders Lisinopril 10 mg PO DAILY 02/12/12 Atorvastatin Calcium [Lipitor] 10 mg PO BEDTIME 10/24/19 Escitalopram [Lexapro] 20 mg PO DAILY 10/24/19 Acetaminophen [Tylenol] 325 mg PO Q6H PRN #60 tab 10/25/19 Albuterol Sulfate Nebs [Proventil Nebs] 2.5 mg NEB Q4H PRN vial 10/25/19 Ondansetron Tab [Zofran Tab] 4 mg PO Q6H PRN #30 tab 10/25/19 Furosemide 40 mg PO DAILY 12/16/19 Melatonin 3 mg PO DAILY 12/16/19 Paroxetine HCl [Paxil] 10 mg PO DAILY 12/16/19 Potassium Chloride 20 meq PO DAILY 12/16/19 Review of Systems - Review of Systems Constitutional: Denies: chills, fever, malaise EENTM: Denies: blurred vision, throat pain, throat swelling Respiratory: States: cough. Denies: short of breath, stridor, wheezing Cardiology: Denies: chest pain, palpitations, syncope Gastrointestinal/Abdominal: Denies: abdominal pain, diarrhea, nausea, vomiting Genitourinary: Denies: dysuria, frequency, hematuria Musculoskeletal: Denies: joint swelling, muscle pain Skin: Denies: rash Neurological: Denies: headache, numbness Endocrine: Denies: unexplained weight gain, unexplained weight loss Hematologic/Lymphatic: Denies: blood clots, easy bleeding, easy bruising Past Medical History (General) - Patient Medical History Hx Seizures: No Hx Stroke: No Hx Dementia: Yes Hx Asthma: No Hx of COPD: No Hx Cardiac Disorders: No Hx Congestive Heart Failure: No Hx Pacemaker: No Hx Hypertension: No Hx Thyroid Disease: No Hx Diabetes: No Hx Gastroesophageal Reflux: No Hx Renal Disease: No Hx Cancer: No Hx of HIV: No Hx Hepatitis C: No Hx MRSA: No - Vaccination History Hx Tetanus, Diphtheria Vaccination: Yes - 3 years ago Hx Influenza Vaccination: Yes Hx Pneumococcal Vaccination: Yes - Social History Hx Tobacco Use: Yes - quit 5 years ago after 50 years of smoking Hx Chewing Tobacco Use: No Hx Alcohol Use: No Hx Substance Use: No Hx Substance Use Treatment: No Hx Depression: Yes Hx Physical Abuse: No Hx Emotional Abuse: No Hx Suspected Abuse: No - Female History Patient : No Family Medical History - Family History Mother Family History: Unknown Hx Family Hypertension: Yes Physical Exam - Physical Exam General Appearance: Alert, Comfortable, No apparent distress, Well Developed, Well Groomed, Well Hydrated, Well Nourished ENT Exam: normal ENT inspection, hearing grossly normal Neck: non-tender, full range of motion, supple, normal inspection, trachea midline Respiratory: chest non-tender, lungs clear, normal breath sounds, no respiratory distress, no accessory muscle use Cardiovascular/Chest: normal peripheral pulses, regular rate, rhythm, no edema, no gallop, no JVD, no murmur Gastrointestinal/Abdominal: normal bowel sounds, non tender, soft, no organomegaly, no pulsatile mass Extremity: normal range of motion, non-tender, normal inspection, no pedal edema, no calf tenderness, normal capillary refill Neurologic: bicycle designer II-XII nml as tested, no motor/sensory deficits, alert, normal m ood/affect, oriented x 3 Skin Exam: normal color, warm/dry Progress - Progress Progress: 12/16/19 13:05 elevated CJK could be from covid, but also from polymyocitis, patient declines IV at this time. encouraged good hydration. The data reviewed when caring for this patient included: nurse notes, prior records, etc. The history and assessments from nurses notes were reviewed and considered, and the patient's home medication list was also reviewed and considered. My assessment and the results of testing completed here in the ED were discussed with the patient/family. All questions were answered, and they express understanding of my assessment and the plan. They have been instructed to return if their symptoms worsen, and have been asked to follow up with their primary care physician to recheck today's presenting complaint. return precautions given. vss, patient discharged back to assisted in stable condition. Nesha Yanez DO #[id number] - Results/Orders Results/Orders: 12/16/19 11:45 Pulse Ox, Continuous Monitoring STAT 12/16/19 12:14 D-DIMER,QUANTITATIVE Stat PARTIAL THROMBOPLASTIN TIME Stat 12/17/19 11:45 Pulse Ox, Continuous Monitoring STAT 12/18/19 11:45 Pulse Ox, Continuous Monitoring STAT Laboratory Results WBC 11.0 K/mm3 (4.8-10.8) H 12/16/19 12:14 RBC 4.61 M/mm3 (4.20-5.40) 12/16/19 12:14 Hgb 14.3 gm/dL (12.0-16.0) 12/16/19 12:14 Hct 42.7 % (36.0-47.0) 12/16/19 12:14 MCV 92.6 fl (81.0-99.0) 12/16/19 12:14 MCH 31.0 pg (27.0-31.0) 12/16/19 12:14 MCHC 33.5 g/dL (33.0-37.0) 12/16/19 12:14 RDW 14.9 % (11.5-14.5) H 12/16/19 12:14 Plt Count 292 K/mm3 (130-400) 12/16/19 12:14 MPV 9.1 fl (7.40-10.4) 12/16/19 12:14 Absolute Neuts (auto) 7.70 K/uL (1.8-6.8) H 12/16/19 12:14 Absolute Lymphs (auto) 2.30 K/uL (1.0-3.4) 12/16/19 12:14 Absolute Monos (auto) 0.90 K/uL (0.2-0.8) H 12/16/19 12:14 Absolute Eos (auto) 0.00 K/uL (0.0-0.4) 12/16/19 12:14 Absolute Basos (auto) 0.00 K/uL (0.0-0.1) 12/16/19 12:14 Neutrophils % 69.9 % (42.0-78.0) 12/16/19 12:14 Lymphocytes % 21.2 % (20.0-50.0) 12/16/19 12:14 Monocytes % 8.2 % (2.0-9.0) 12/16/19 12:14 Eosinophils % 0.3 % (1.0-5.0) L 12/16/19 12:14 Basophils % 0.4 % (0.0-2.0) 12/16/19 12:14 D-Dimer, Quantitative < 131.0 ng/ml (131-400) L 12/16/19 12:14 Sodium 134 mmol/L (135-145) L 12/16/19 12:14 Potassium 4.0 mmol/L (3.6-5.0) 12/16/19 12:14 Chloride 94 mmol/L (101-111) L 12/16/19 12:14 Carbon Dioxide 27 mmol/L (21-31) 12/16/19 12:14 Anion Gap 17.0 (12-18) 12/16/19 12:14 BUN 23 mg/dL (7-18) H 12/16/19 12:14 Creatinine 0.66 mg/dL (0.6-1.3) 12/16/19 12:14 BUN/Creatinine Ratio 34.8 (10-20) H 12/16/19 12:14 Random Glucose 94 mg/dL (70-105) 12/16/19 12:14 Serum Osmolality 271.7 mOsm/L (275-295) L 12/16/19 12:14 Calcium 9.0 mg/dL (8.4-10.2) 12/16/19 12:14 Magnesium 2.0 mg/dL (1.8-2.5) 12/16/19 12:14 Total Bilirubin 0.7 mg/dL (0.2-1.0) 12/16/19 12:14 AST 51 IU/L (10-42) H 12/16/19 12:14 ALT 50 IU/L (10-60) 12/16/19 12:14 Alkaline Phosphatase 101 IU/L (42-121) 12/16/19 12:14 LD Total 195 IU/L (91-180) H D 12/16/19 12:14 Creatine Kinase 493 IU/L (26-140) H* D 12/16/19 12:14 Troponin I < 0.02 ng/mL (0.01-0.05) 12/16/19 12:14 C-Reactive Protein 2.9 mg/dL (0-1.0) H 12/16/19 12:14 Serum Total Protein 7.5 gm/dL (6.4-8.2) 12/16/19 12:14 Albumin 3.9 g/dl (3.2-5.5) 12/16/19 12:14 Globulin 3.6 gm/dL (2.3-3.5) H 12/16/19 12:14 Albumin/Globulin Ratio 1.1 (1.1-1.9) 12/16/19 12:14 - EKG/XRAY/CT XRAY: chest - bilateral atelectasis vs scar Departure - Departure Clinical Impression: COVID-19 Time of Disposition: 12:48 Disposition: Discharge to SNF Instructions: Polymyositis, Cough, Adult (DC) Diet: resume usual diet, other - encourage lots of fluids to stay hydrated Activity: increase activity as tolerated Referrals: KATERINA OSMAN MD [Primary Care Provider] - 1-5 Days Home Medications: Ambulatory Orders Lisinopril 10 mg PO DAILY 02/12/12 Atorvastatin Calcium [Lipitor] 10 mg PO BEDTIME 10/24/19 Escitalopram [Lexapro] 20 mg PO DAILY 10/24/19 Acetaminophen [Tylenol] 325 mg PO Q6H PRN #60 tab 10/25/19 Albuterol Sulfate Nebs [Proventil Nebs] 2.5 mg NEB Q4H PRN vial 10/25/19 Ondansetron Tab [Zofran Tab] 4 mg PO Q6H PRN #30 tab 10/25/19 Furosemide 40 mg PO DAILY 12/16/19 Melatonin 3 mg PO DAILY 12/16/19 Paroxetine HCl [Paxil] 10 mg PO DAILY 12/16/19 Potassium Chloride 20 meq PO DAILY 12/16/19
--- NOTE | 2019-12-16 11:54 | RAD ---
EXAM DESCRIPTION: Chest,1 View CLINICAL HISTORY: covid cough COMPARISON: Chest radiograph dated October 24, 2019 TECHNIQUE: One view radiograph of the chest FINDINGS: Cardiac silhouette shows normal heart size. Pulmonary vascularity is within normal limits. Thin linear opacity bilateral mid lungs compatible with atelectasis versus scar. Otherwise, lungs show no confluent infiltrates. Costophrenic angles are sharp. No pneumothorax. No acute osseous abnormality. IMPRESSION: Thin linear opacity bilateral mid lungs compatible with atelectasis versus scar. Otherwise, lungs show no confluent infiltrates. Electronically signed by: Len Do MD 12/16/2019 11:52 AM [facility]
[2019-12-16 12:11] VITALS: O2SAT 94
[2019-12-16 18:50] VITALS: BP 130/58; TEMP 97.7
== END 2019-12-16 17:00 ==
LOC: ER 11:20
DX: U07.1 COVID-19 (principal); M33.20 Polymyositis, organ involvement unspecified; F03.90 Unspecified dementia, unspecified severity, without behavioral disturbance, psychotic disturbance, mood disturbance, and anxiety; F32.9 Major depressive disorder, single episode, unspecified; Z99.81 Dependence on supplemental oxygen; Z79.899 Other long term (current) drug therapy; Z87.891 Personal history of nicotine dependence

== ENCOUNTER → 2019-12-23 | Outpatient (CLI) | payer MEDICARE, OTHER | LOC: GT 13:21 | PROVIDERS: ATTEND Family Medicine | DX: R09.02 Hypoxemia (principal); R71.8 Other abnormality of red blood cells ==

== ENCOUNTER 2019-12-25 14:19 | Inpatient (IN) | payer MEDICARE, OTHER ==
[2019-12-25] MEDS ORDERED: SODIUM CHLORIDE 0.9% 1000ML 1,000 ML IVS ONE ×2 (14:47→16:17)
--- NOTE | 2019-12-25 14:58 | ED.PDOC ---
History of Present Illness - General Chief Complaint: General Stated Complaint: +COVID,sent from [place] for blood draw Time Seen by Provider: 12/25/19 14:22 Source: patient, RN notes reviewed, Vital Signs reviewed, skilled nursing records, old records Exam Limitations: no limitations - History of Present Illness Initial Comments: 79 yo F with polymyositis comes in from skilled nursing with recent dx of COVID. She was originally sent to hospital for blood work, but unable to get blood draw so sent to ER. Patient complains of generalized malaise, fatigue. Had blood work two days ago. Allergies/Adverse Reactions: Allergies Morphine Allergy (Verified 12/16/19 12:11) Home Medications: Ambulatory Orders Lisinopril 10 mg PO DAILY 02/12/12 Atorvastatin Calcium [Lipitor] 10 mg PO BEDTIME 10/24/19 Escitalopram [Lexapro] 20 mg PO DAILY 10/24/19 Acetaminophen [Tylenol] 325 mg PO Q6H PRN #60 tab 10/25/19 Albuterol Sulfate Nebs [Proventil Nebs] 2.5 mg NEB Q4H PRN vial 10/25/19 Ondansetron Tab [Zofran Tab] 4 mg PO Q6H PRN #30 tab 10/25/19 Furosemide 40 mg PO DAILY 12/16/19 Melatonin 3 mg PO DAILY 12/16/19 Paroxetine HCl [Paxil] 10 mg PO DAILY 12/16/19 Potassium Chloride 20 meq PO DAILY 12/16/19 Review of Systems - Review of Systems Constitutional: States: malaise. Denies: chills, fever EENTM: Denies: blurred vision, throat pain, throat swelling Respiratory: States: cough. Denies: short of breath Cardiology: Denies: chest pain, palpitations, syncope Gastrointestinal/Abdominal: Denies: abdominal pain, diarrhea, nausea, vomiting Musculoskeletal: States: muscle pain - chronic Skin: Denies: rash Neurological: Denies: headache Endocrine: Denies: unexplained weight gain, unexplained weight loss Hematologic/Lymphatic: Denies: easy bleeding, easy bruising Past Medical History (General) - Patient Medical History Hx Seizures: No Hx Stroke: No Hx Dementia: Yes Hx Asthma: No Hx of COPD: No Hx Cardiac Disorders: No Hx Congestive Heart Failure: No Hx Pacemaker: No Hx Hypertension: No Hx Thyroid Disease: No Hx Diabetes: No Hx Gastroesophageal Reflux: No Hx Renal Disease: No Hx Cancer: No Hx of HIV: No Hx Hepatitis C: No Hx MRSA: No - Vaccination History Hx Tetanus, Diphtheria Vaccination: Yes - 3 years ago Hx Influenza Vaccination: Yes Hx Pneumococcal Vaccination: Yes - Social History Hx Tobacco Use: Yes - quit 5 years ago after 50 years of smoking Hx Chewing Tobacco Use: No Hx Alcohol Use: No Hx Substance Use: No Hx Substance Use Treatment: No Hx Depression: Yes Hx Physical Abuse: No Hx Emotional Abuse: No Hx Suspected Abuse: No - Activities of Daily Living Halfway/Assisted Living (if applicable):: [place] - Female History Patient : No Family Medical History - Family History Mother Family History: Unknown Hx Family Hypertension: Yes Physical Exam - Physical Exam General Appearance: Alert, Comfortable, No apparent distress, Unkempt, Well Developed Eye Exam: bilateral normal Ears, Nose, Throat: hearing grossly normal Neck: non-tender, full range of motion, supple, normal inspection Respiratory: chest non-tender, lungs clear, normal breath sounds, no respiratory distress, no accessory muscle use Cardiovascular/Chest: normal peripheral pulses, regular rate, rhythm, no edema, no gallop, no JVD, no murmur Peripheral Pulses: radial,right: 2+, radial,left: 2+ Gastrointestinal/Abdominal: normal bowel sounds, non tender, soft, no organomegaly, no pulsatile mass Rectal Exam: deferred Back Exam: normal inspection, no vertebral tenderness Extremity: other - atrophy throughout, LE weakness, chronic. Neurologic: alert, normal mood/affect Skin Exam: normal color, warm/dry Progress - Progress Progress: 12/25/19 16:56 Patient well known to ER, she is a very hard access. She received 1 L NS bolus, BP improved to 115/70. will give an additional bolus. Patient received remdisivir, and ceftiraxone for uti 12/25/19 18:34 unable to get blood culture or lactic acid. The data reviewed when caring for this patient included: nurse notes, prior records, etc. The history and assessments from nurses notes were reviewed and considered, and the patient's home medication list was also reviewed and considered. My assessment and the results of testing completed here in the ED were discussed with the patient. All questions were answered, and they express understanding of my assessment and the plan. Nesha Yanez DO #[id number] 12/25/19 18:35 - Results/Orders Results/Orders: 12/25/19 14:00 URINE CULTURE W/COLONY COUNT Stat 12/25/19 15:00 Pulse Ox, Continuous Monitoring STAT 12/25/19 16:58 Remdesivir 200 mg Sodium Chloride 0.9% 250Ml [NS 250ml] 250 ml IVPB ONCE 12/26/19 15:00 Pulse Ox, Continuous Monitoring STAT 12/27/19 15:00 Pulse Ox, Continuous Monitoring STAT Laboratory Results WBC 9.6 K/mm3 (4.8-10.8) 12/25/19 15:08 RBC 4.38 M/mm3 (4.20-5.40) 12/25/19 15:08 Hgb 13.4 gm/dL (12.0-16.0) 12/25/19 15:08 Hct 39.1 % (36.0-47.0) 12/25/19 15:08 MCV 89.2 fl (81.0-99.0) 12/25/19 15:08 MCH 30.7 pg (27.0-31.0) 12/25/19 15:08 MCHC 34.4 g/dL (33.0-37.0) 12/25/19 15:08 RDW 14.4 % (11.5-14.5) 12/25/19 15:08 Plt Count 218 K/mm3 (130-400) 12/25/19 15:08 MPV 9.2 fl (7.40-10.4) 12/25/19 15:08 Absolute Neuts (auto) 8.90 K/uL (1.8-6.8) H 12/25/19 15:08 Absolute Lymphs (auto) 0.50 K/uL (1.0-3.4) L 12/25/19 15:08 Absolute Monos (auto) 0.10 K/uL (0.2-0.8) L 12/25/19 15:08 Absolute Eos (auto) 0.00 K/uL (0.0-0.4) 12/25/19 15:08 Absolute Basos (auto) 0.00 K/uL (0.0-0.1) 12/25/19 15:08 Neutrophils % 93.1 % (42.0-78.0) H 12/25/19 15:08 Lymphocytes % 5.3 % (20.0-50.0) L 12/25/19 15:08 Monocytes % 1.3 % (2.0-9.0) L 12/25/19 15:08 Eosinophils % 0.0 % (1.0-5.0) L 12/25/19 15:08 Basophils % 0.3 % (0.0-2.0) 12/25/19 15:08 PTT (SP) 34.8 SECONDS (21.8-31.6) H 12/25/19 15:08 Fibrinogen 501 mg/dL (210-385) H 12/25/19 15:08 D-Dimer, Quantitative 327.0 ng/ml (131-400) 12/25/19 15:08 Sodium 127 mmol/L (135-145) L 12/25/19 15:08 Potassium 4.1 mmol/L (3.6-5.0) 12/25/19 15:08 Chloride 90 mmol/L (101-111) L 12/25/19 15:08 Carbon Dioxide 20 mmol/L (21-31) L 12/25/19 15:08 Anion Gap 21.1 (12-18) H 12/25/19 15:08 BUN 23 mg/dL (7-18) H 12/25/19 15:08 Creatinine 0.51 mg/dL (0.6-1.3) L 12/25/19 15:08 BUN/Creatinine Ratio 45.1 (10-20) H 12/25/19 15:08 Random Glucose 143 mg/dL (70-105) H D 12/25/19 15:08 Serum Osmolality 261.4 mOsm/L (275-295) L 12/25/19 15:08 Calcium 8.4 mg/dL (8.4-10.2) 12/25/19 15:08 Magnesium 1.7 mg/dL (1.8-2.5) L 12/25/19 15:08 Ferritin 754.1 ng/mL (11.0-306.8) H 12/25/19 15:08 Total Bilirubin 0.9 mg/dL (0.2-1.0) 12/25/19 15:08 AST 52 IU/L (10-42) H 12/25/19 15:08 ALT 38 IU/L (10-60) 12/25/19 15:08 Alkaline Phosphatase 94 IU/L (42-121) 12/25/19 15:08 LD Total 179 IU/L (91-180) 12/25/19 15:08 Creatine Kinase 379 IU/L (26-140) H* D 12/25/19 15:08 Troponin I < 0.02 ng/mL (0.01-0.05) 12/25/19 15:08 C-Reactive Protein 4.0 mg/dL (0-1.0) H D 12/25/19 15:08 Serum Total Protein 6.3 gm/dL (6.4-8.2) L 12/25/19 15:08 Albumin 3.1 g/dl (3.2-5.5) L 12/25/19 15:08 Globulin 3.2 gm/dL (2.3-3.5) 12/25/19 15:08 Albumin/Globulin Ratio 1.0 (1.1-1.9) L 12/25/19 15:08 Urine Color Yellow (Yellow) 12/25/19 14:00 Urine Appearance Sl cloudy (Clear) 12/25/19 14:00 Urine pH 6.0 (4.5-7.8) 12/25/19 14:00 Ur Specific [place] 1.015 (1.005-1.030) 12/25/19 14:00 Urine Protein Trace mg/dL 12/25/19 14:00 Urine Glucose (UA) Negative mg/dL (Negative) 12/25/19 14:00 Urine Ketones Trace mg/dL (NEGATIVE) 12/25/19 14:00 Urine Blood Negative (Negative) 12/25/19 14:00 Urine Nitrite Positive H 12/25/19 14:00 Urine Bilirubin Negative (NEGATIVE) 12/25/19 14:00 Urine Urobilinogen 0.2 mg/dL (0.2-1.0) 12/25/19 14:00 Ur Leukocyte Esterase Large (Negative) H 12/25/19 14:00 Urine RBC 0-1 /hpf 12/25/19 14:00 Urine WBC 30-40 /hpf H 12/25/19 14:00 Ur Epithelial Cells 5-10 /hpf 12/25/19 14:00 Amorphous Sediment 2+ 12/25/19 14:00 Urine Bacteria 4+ H 12/25/19 14:00 Departure - Departure Clinical Impression: COVID-19, Polymyositis Urinary tract infection Qualifiers: Urinary tract infection type: acute cystitis Hematuria presence: without hematuria Qualified Code(s): N30.00 - Acute cystitis without hematuria Sepsis Qualifiers: Sepsis type: sepsis due to unspecified organism Sepsis acute organ dysfunction status: without acute organ dysfunction Qualified Code(s): A41.9 - Sepsis, unspecified organism Departure Forms: ED Discharge - Pt. Copy, Patient Portal Self Enrollment Referrals: KATERINA OSMAN MD [Primary Care Provider] - 1-2 Weeks Home Medications: Ambulatory Orders Lisinopril 10 mg PO DAILY 02/12/12 Atorvastatin Calcium [Lipitor] 10 mg PO BEDTIME 10/24/19 Escitalopram [Lexapro] 20 mg PO DAILY 10/24/19 Acetaminophen [Tylenol] 325 mg PO Q6H PRN #60 tab 10/25/19 Albuterol Sulfate Nebs [Proventil Nebs] 2.5 mg NEB Q4H PRN vial 10/25/19 Ondansetron Tab [Zofran Tab] 4 mg PO Q6H PRN #30 tab 10/25/19 Furosemide 40 mg PO DAILY 12/16/19 Melatonin 3 mg PO DAILY 12/16/19 Paroxetine HCl [Paxil] 10 mg PO DAILY 12/16/19 Potassium Chloride 20 meq PO DAILY 12/16/19
[2019-12-25] MEDS ORDERED: cefTRIAXone SODIUM 1 GM in SODIUM CHL 0.9% 50ML MIN-BAG+ 50 ML IVPB ONE (16:15)
[2019-12-25] MEDS ORDERED: REMDESIVIR 200 MG in SODIUM CHLORIDE 0.9% 250ML 250 ML IVPB ONE (16:58)
--- NOTE | 2019-12-25 20:57 | HP ---
SUPERVISING PHYSICIAN: Severino Brar MD CHIEF COMPLAINT: COVID-19. HISTORY OF PRESENT ILLNESS: This is a 79-year-old female patient who lives at [facility]. She had actually been in the Emergency Room two days prior and had actually been diagnosed about a week ago. She actually is a very difficult blood draw and came to the Emergency Room due to difficulty drawing her blood, but at the ER, she actually complained of increasing fatigue, weakness and she has a recent diagnosis of polymyositis [facility] bedbound. Her vital signs shows temperature 97.5, heart rate 94, blood pressure 83/56, respiratory rate 20, O2 93% on room air. An IV was started and she received some fluids. Lab studies were drawn. WBCs 9.6 although it is to be noted that two days ago, her WBCs were 12,500. PTT 34.8, fibrinogen 501, but D-dimer was 327. Sodium 127, potassium 4.1, chloride 90, carbon dioxide 20, BUN 23, creatinine 0.51. Calcium 8.4, magnesium 1.7, ferritin 754.1, AST 52, creatinine kinase 379, troponin less than 0.02. C- reactive protein 4. Urinalysis shows positive urine nitrites, large amount of urine leukocyte esterase, 30 to 40 urine WBCs and 4+ urine bacteria. Cultures were sent on the urine. They were unable to draw blood cultures due to difficulty drawing blood. She was given Remdesivir, azithromycin and Rocephin as well as Decadron. She received a total of 2 liters of fluids. Systolic blood pressure did come up to the 100s. Due to her urinary tract infection as well as COVID-19 with sepsis, she was admitted to the hospital in stable condition. PAST MEDICAL HISTORY: 1. Polymyositis, recent diagnosis, uncertain etiology. 2. Type 2 diabetes mellitus, diet therapy only. 3. Bladder cancer. 4. Osteopenia. PAST SURGICAL HISTORY: 1. Hysterectomy. 2. Appendectomy. 3. Tonsillectomy. 4. Bilateral tubal ligation. 5. Colonoscopy. OUTPATIENT MEDICATIONS: 1. Albuterol. 2. Atorvastatin. 3. Lexapro. 4. Furosemide. 5. Melatonin. 6. Lisinopril. 7. Zofran. 8. Paxil. 9. Potassium chloride. 10. Prednisone. 11. Tylenol PM. ALLERGIES: MORPHINE. FAMILY HISTORY: Positive for cardiac complications, coronary artery disease, and hypertension. SOCIAL HISTORY: She lives at [facility]. She is . She has two daughters. She has a past history of cigarette smoking, but quit in 2012. She drinks alcohol on a social basis. There is no history of illicit drug use. REVIEW OF SYSTEMS: GENERAL: Positive for fatigue. Negative for fever or weight changes. HEENT: Negative for sinus symptoms, ear pain, vision changes or sore throat. RESPIRATORY: Positive for coughing and shortness of breath. Negative for wheezing. CARDIAC: Negative for chest pain, palpitations or tachycardia. GASTROINTESTINAL: Negative for nausea, vomiting, diarrhea, constipation. GENITOURINARY: Negative for hematuria, dysuria or polyuria, although she does have a catheter. MUSCULOSKELETAL: She has generalized weakness. NEUROLOGIC: Negative for headache and seizures. PHYSICAL EXAMINATION: VITAL SIGNS: Temperature 97, heart rate 83, blood pressure 118/70, respiratory rate 17, O2 saturation 94% on 2 liters nasal cannula. GENERAL: This is a 79-year-old female patient lying in her hospital bed. She is somewhat anxious and in mild respiratory distress. HEENT: Normocephalic, atraumatic. Oropharynx is clear. NECK: Supple. RESPIRATORY: Bilateral rhonchi noted throughout all lung elliott. She is very diminished at the bases. Her respiratory rate is fairly normal although she does appear to be in some mild respiratory distress. CARDIOVASCULAR: Regular rate and rhythm. GASTROINTESTINAL: Abdomen is soft, nondistended. Bowel sounds are positive. NEUROLOGIC: Awake, alert. Cranial nerves II-XII are grossly intact as tested. SKIN: Warm and dry. LABORATORY: Labs and films are as per history of present illness. IMPRESSION: 1. COVID pneumonitis. 2. Sepsis related to urinary tract infection and COVID. She had a WBC of 12,500 two days ago with heart rate today of 94, blood pressure 83/56 and required fluid resuscitation. She also had an elevated C-reactive protein. 3. Urinary tract infection. 4. Hyponatremia. 5. Polymyositis, recent diagnosis. 6. History of bladder cancer. PLAN: The patient has been admitted to the hospital and we will initiate the COVID and pneumonia guidelines. We will continue with Remdesivir, azithromycin and Rocephin. The Rocephin should be effective for the urinary tract infection until the cultures come back. She will be on fluid restriction. I have given her some magnesium replacement. She will have aggressive pulmonary hygiene. I have started her on Lovenox and proton pump inhibitor for ulcer prophylaxis. Her home medications will be restarted as soon as they are verified. We will monitor and treat as needed. #[id number] [facility]
[2019-12-25] MEDS ORDERED: ALBUTEROL INHALER 64 PUFF/8GM INH PRN (20:58)
[2019-12-25] MEDS ORDERED: ACETAMINOPHEN 325 MG TAB PO PRN (21:08)
[2019-12-25] MEDS ORDERED: SODIUM CHLORIDE 0.9% (FLUSH) 10 ML SYG IV PRN (21:08)
[2019-12-25] MEDS ORDERED: ONDANSETRON INJ 4 MG/2 ML VIAL IV PRN (21:08)
[2019-12-25] MEDS ORDERED: IV SET AND CAP CHANGE INJ INJ SCH (21:30)
--- NOTE | 2019-12-25 22:45 | CT ---
PROCEDURE: CT CHEST WITHOUT IV CONTRAST CLINICAL HISTORY: COVID TECHNIQUE: Contiguous axial images obtained through the chest without IV contrast. Coronal and sagittal reformatted images provided. This exam was performed according to our departmental dose-optimization program, which includes automated exposure control, adjustment of the mA and/or kV according to patient size and/or use of iterative reconstruction technique. COMPARISON: No prior exams provided for comparison. FINDINGS: Lungs: Centrilobular emphysema and scattered bilateral subsegmental atelectasis/pleural parenchymal scar. Patchy right basilar groundglass opacities and mild consolidative changes. Airways are patent. Pleura: Trace right effusion. No pneumothorax. Heart and pericardium: The heart is mildly enlarged. Coronary artery calcification. No pericardial effusion. Mediastinum and lian: No pathologically enlarged lymph nodes. Lower neck and chest wall: Unremarkable Vessels: Mild atherosclerotic disease. No thoracic aortic aneurysm. Upper abdomen: Unremarkable Bones: Mild multilevel spondylosis. Remote bilateral 4th through 7th and right 8th rib fractures. IMPRESSION: 1. Imaging features can be seen with COVID-19 pneumonia, though are nonspecific and can occur with a variety of infectious and noninfectious processes. [PneInd] Reference: https://pubs.rsna.org/doi/full/10.1148/ryct.[email or web address] 2. Other findings as above. Electronically signed by: Stefan Perez MD 12/25/2019 10:43 PM [facility]
[2019-12-25] MEDS: guaiFENesin ER TAB 600 MG TAB PO SCH (22:56)
[2019-12-25] MEDS: BIFIDOBACTERIUM INFANTIS 4 MG CAP PO SCH (22:57)
[2019-12-26] MEDS ORDERED: MAGNESIUM SULFATE PREMIX 2GM 2 GM in PREMIX BAG 1 BAG IVPB ONE (01:26)
[2019-12-26] MEDS ORDERED: MAGNESIUM SULFATE PREMIX 2GM 50 ML IVPB ONE (01:45)
[2019-12-26] MEDS ORDERED: PANTOPRAZOLE SODIUM IV 40 MG VIAL IV SCH (06:30)
[2019-12-26] MEDS ORDERED: PARoxetine HCL 20 MG TAB ONE (07:12)
[2019-12-26] MEDS ORDERED: AZITHROMYCIN IV 500 MG VIAL IVPB ONE (07:13)
[2019-12-26] MEDS ORDERED: POTASSIUM CHLORIDE 20 MEQ TAB ONE (07:13)
[2019-12-26] MEDS ORDERED: cefTRIAXone SODIUM 1 GM VIAL ONE (07:14)
[2019-12-26] MEDS ORDERED: SODIUM CHLORIDE 0.9% 250ML 250 ML ONE (07:14)
[2019-12-26] MEDS ORDERED: SODIUM CHL 0.9% 50ML MIN-BAG+ 50 ML IVPB ONE (07:14)
[2019-12-26] MEDS: cefTRIAXone SODIUM 1 GM in SODIUM CHL 0.9% 50ML MIN-BAG+ 50 ML IVPB SCH (08:43)
[2019-12-26] MEDS: DEXAMETHASONE INJ 10 MG/ML VIAL IV SCH (08:44)
[2019-12-26] MEDS: AZITHROMYCIN IV 500 MG in SODIUM CHLORIDE 0.9% 250ML 250 ML IVPB SCH (09:00)
[2019-12-26] MEDS ORDERED: predniSONE 20 MG TAB PO SCH (09:00)
[2019-12-26] MEDS: PARoxetine HCL 20 MG TAB PO SCH (09:01)
[2019-12-26] MEDS: BIFIDOBACTERIUM INFANTIS 4 MG CAP PO SCH ×2 (09:01→22:15)
[2019-12-26] MEDS: ESCITALOPRAM 10 MG TAB PO SCH (09:01)
[2019-12-26] MEDS: LISINOPRIL 10 MG TAB PO SCH (09:02)
[2019-12-26] MEDS: FUROSEMIDE 40 MG TAB PO SCH (09:02)
[2019-12-26] MEDS: POTASSIUM CHLORIDE 20 MEQ TAB PO SCH (09:02)
[2019-12-26] MEDS: ENOXAPARIN SODIUM 40 MG/0.4 ML SYG SUBCU SCH (09:03)
[2019-12-26] MEDS: guaiFENesin ER TAB 600 MG TAB PO SCH ×2 (09:03→22:15)
[2019-12-26] MEDS: SODIUM CHLORIDE 0.9% (FLUSH) 10 ML SYG IV SCH ×2 (09:19→22:16)
[2019-12-26] MEDS ORDERED: POTASSIUM CHLORIDE 20 MEQ TAB PO ONE (09:40)
[2019-12-26] MEDS ORDERED: SODIUM CHLORIDE 0.9% (FLUSH) 10 ML SYG ONE (11:35)
--- NOTE | 2019-12-26 11:37 | PN ---
SUPERVISING PHYSICIAN: Severino Brar MD DATE: 12/26/19 SUBJECTIVE: The patient does not really feel like she is short of breath. She does complain of being cold. She does have advanced dementia, so is not always consistent with her answers. OBJECTIVE: VITAL SIGNS: Blood pressure 102/68, heart rate 74, respiratory rate 16, temperature 97.5, oxygen saturation 96% on 2 liters via nasal cannula. GENERAL: Ms. Waters is a 79-year-old female who is in no active distress, but ill in appearance. NEUROLOGIC: The patient is alert, nonfocal. LUNGS: Diminished, but otherwise clear to auscultation bilaterally. CARDIOVASCULAR: Regular rate and rhythm. Normal S1, S2. ABDOMEN: Soft. Positive bowel sounds. GENITOURINARY: Deferred. EXTREMITIES: Lower extremities with no edema. LABORATORY: White count 8.5, hemoglobin 12.0, hematocrit 35.3, platelet count 205. She does have 3% bands. Coagulation studies show D-dimer 574, fibrinogen 416. Chemistry this morning does show a low potassium at 3.0, BUN 19, creatinine less than 0.40. Magnesium 2.6, CK down to 275 from 379, CRP is down to 2.7 from 4.0. MICROBIOLOGY: Urine so far is showing gram negative rods with no complete identification as of yet. ASSESSMENT: 1. COVID pneumonitis. 2. Gram negative urinary tract infection. 3. Sepsis secondary to #2. 4. Hypokalemia. 5. Polymyositis. 6. History of bladder cancer. PLAN: We will continue the current antibiotic regimen with azithromycin and Rocephin. The Rocephin should be sufficient to cover the gram negative urinary tract infection, but we will monitor the cultures and adjust as needed. We will continue the dexamethasone and Remdesivir as well. We will continue to wean off oxygen as tolerated as well. [facility][id number] [facility]
[2019-12-26] MEDS: REMDESIVIR 100 MG in SODIUM CHLORIDE 0.9% 250ML 250 ML IVPB SCH (12:09)
[2019-12-26] MEDS ORDERED: MELATONIN 3 MG TAB ONE (19:11)
[2019-12-26] MEDS ORDERED: ATORVASTATIN 10 MG TAB ONE (19:11)
[2019-12-26] MEDS: ATORVASTATIN 10 MG TAB PO SCH (22:15)
[2019-12-26] MEDS: MELATONIN 3 MG TAB PO SCH (22:15)
[2019-12-27] MEDS ORDERED: PANTOPRAZOLE SODIUM TAB 40 MG PO ONE (04:21)
[2019-12-27] MEDS: PANTOPRAZOLE SODIUM TAB 40 MG PO SCH (06:18)
[2019-12-27] MEDS: PARoxetine HCL 20 MG TAB PO SCH (10:08)
[2019-12-27] MEDS: BIFIDOBACTERIUM INFANTIS 4 MG CAP PO SCH ×2 (10:09→21:30)
[2019-12-27] MEDS: ESCITALOPRAM 10 MG TAB PO SCH (10:09)
[2019-12-27] MEDS: cefTRIAXone SODIUM 1 GM in SODIUM CHL 0.9% 50ML MIN-BAG+ 50 ML IVPB SCH (10:09)
[2019-12-27] MEDS: POTASSIUM CHLORIDE 20 MEQ TAB PO SCH (10:09)
[2019-12-27] MEDS: LISINOPRIL 10 MG TAB PO SCH (10:09)
[2019-12-27] MEDS: DEXAMETHASONE INJ 10 MG/ML VIAL IV SCH (10:09)
[2019-12-27] MEDS: FUROSEMIDE 40 MG TAB PO SCH (10:09)
[2019-12-27] MEDS: ENOXAPARIN SODIUM 40 MG/0.4 ML SYG SUBCU SCH (10:09)
[2019-12-27] MEDS: SODIUM CHLORIDE 0.9% (FLUSH) 10 ML SYG IV SCH ×2 (10:10→21:31)
[2019-12-27] MEDS: AZITHROMYCIN IV 500 MG in SODIUM CHLORIDE 0.9% 250ML 250 ML IVPB SCH (10:10)
[2019-12-27] MEDS: guaiFENesin ER TAB 600 MG TAB PO SCH ×2 (10:10→21:30)
[2019-12-27] MEDS: LACTATED RINGERS 1,000 ML IVS PRN ×2 (12:23→23:15)
[2019-12-27] MEDS: REMDESIVIR 100 MG in SODIUM CHLORIDE 0.9% 250ML 250 ML IVPB SCH (13:12)
--- NOTE | 2019-12-27 14:05 | PN ---
SUPERVISING PHYSICIAN: Severino Brar MD DATE: 12/27/19 SUBJECTIVE: The patient denies having any fever or shortness of breath at this time. She is very paranoid and does not really want you to touch her. OBJECTIVE: VITAL SIGNS: Blood pressure 101/65, heart rate 78, respiratory rate 16, temperature 98.5, oxygen saturation 99% on 2 liters via nasal cannula. GENERAL: Ms. Waters is a 79-year-old female who is in no active distress. NEUROLOGIC: The patient is alert. LUNGS: Diminished in the bases, but otherwise clear to auscultation bilaterally. CARDIOVASCULAR: Regular rate and rhythm. Normal S1, S2. ABDOMEN: Soft. Positive bowel sounds. EXTREMITIES: Lower extremities with no edema. LABORATORY: White count 21.6, hemoglobin 11.4, hematocrit 34.0, platelet count 205. There is no bandemia as there was yesterday. D-dimer 205. CRP 2.9. C02 on her chemistries down to 16 from 22. Urine cultures came back with Klebsiella sensitive to Ceftriaxone that she is on. ASSESSMENT: 1. COVID-19 pneumonitis. 2. Klebsiella urinary tract infection. 3. Sepsis secondary to #2. 4. Hypokalemia resolved. 5. Polymyositis. 6. History of bladder cancer. PLAN: Given the fact that her urine culture is sensitive to ceftriaxone, will continue this. Will continue the azithromycin for the Covid-19 as well as the Remdesivir and dexamethasone. Will wean off oxygen as tolerated. Repeat labs tomorrow. If we can get her off oxygen and her labs improve, we can discharge her on p.o. antibiotics. #[id number] [facility]
[2019-12-27] MEDS: MELATONIN 3 MG TAB PO SCH (21:30)
[2019-12-27] MEDS: ATORVASTATIN 10 MG TAB PO SCH (21:30)
[2019-12-28] MEDS: PANTOPRAZOLE SODIUM TAB 40 MG PO SCH (06:01)
[2019-12-28] MEDS: LACTATED RINGERS 1,000 ML IVS PRN (07:06)
[2019-12-28] MEDS ORDERED: POTASSIUM CHLORIDE 20 MEQ TAB PO ONE (09:22)
[2019-12-28] MEDS ORDERED: MAGNESIUM SULFATE PREMIX 2GM 2 GM in PREMIX BAG 1 BAG IVPB ONE (09:23)
[2019-12-28] MEDS ORDERED: CIPROFLOXACIN 500 MG TAB PO SCH (09:30)
[2019-12-28] MEDS: DEXAMETHASONE INJ 10 MG/ML VIAL IV SCH (10:51)
[2019-12-28] MEDS: POTASSIUM CHLORIDE 20 MEQ TAB PO SCH (10:51)
[2019-12-28] MEDS: PARoxetine HCL 20 MG TAB PO SCH (10:51)
[2019-12-28] MEDS: FUROSEMIDE 40 MG TAB PO SCH (10:52)
[2019-12-28] MEDS: guaiFENesin ER TAB 600 MG TAB PO SCH (10:52)
[2019-12-28] MEDS: ESCITALOPRAM 10 MG TAB PO SCH (10:52)
[2019-12-28] MEDS: LISINOPRIL 10 MG TAB PO SCH (10:52)
[2019-12-28] MEDS: BIFIDOBACTERIUM INFANTIS 4 MG CAP PO SCH (10:53)
[2019-12-28] MEDS: SODIUM CHLORIDE 0.9% (FLUSH) 10 ML SYG IV SCH (10:54)
[2019-12-28] MEDS: ENOXAPARIN SODIUM 40 MG/0.4 ML SYG SUBCU SCH (10:54)
[2019-12-28] MEDS ORDERED: MAGNESIUM SULFATE PREMIX 2GM 50 ML IVPB ONE (11:13)
[2019-12-28] MEDS ORDERED: CEFDINIR 300 MG CAP ONE (11:34)
[2019-12-28] MEDS ORDERED: POTASSIUM CHLORIDE 20 MEQ TAB ONE (11:34)
[2019-12-28] MEDS ORDERED: CIPROFLOXACIN 250 MG TAB ONE (11:37)
[2019-12-28] MEDS: cefTRIAXone SODIUM 1 GM in SODIUM CHL 0.9% 50ML MIN-BAG+ 50 ML IVPB SCH (11:48)
[2019-12-28 14:20] VITALS: BP 101/67; TEMP 98; O2SAT 96
--- NOTE | 2019-12-29 14:45 | DS ---
SUPERVISING PHYSICIAN: Severino Brar MD ADMISSION DIAGNOSIS: 1. COVID pneumonitis. 2. Sepsis related to urinary tract infection. 3. Hyponatremia. 4. Polymyositis. 5. History of bladder cancer. DISCHARGE DIAGNOSIS: 1. COVID pneumonitis. 2. Sepsis related to urinary tract infection. 3. Hyponatremia. 4. Polymyositis. 5. History of bladder cancer. HOSPITAL COURSE: This is a 79-year-old female from [facility] with dementia and who was diagnosed with Covid pneumonitis approximately 9 days ago. In the Emergency Room, she was found to be hypotensive and was given some IV fluid bolus and her blood pressure improved. Sodium was low at 127. Urinalysis was positive for nitrites consistent with a urinary tract infection. Chest x-ray was consistent with Covid pneumonitis as well, although she was only requiring 2 liters via nasal cannula and was oxygenating quite well. Throughout her stay, her vital signs remained acceptable and she had actually weaned off of her oxygen. Her urine culture came back as Klebsiella and her sensitivities were reviewed. She was on Ceftriaxone which was sufficient, however, she will be discharging back to [facility] today in stable condition and I will utilize Cipro for 10 days. Mainly, during her hospitalization, her main issue was the urinary tract infection and not so much the Covid pneumonitis and she did not require oxygen for the last 48 hours. She will be discharged back in stable condition with the antibiotics. She is to followup with her primary care physician in one to two weeks. I will go ahead and continue her guaifenesin as well as albuterol. #[id number] [facility]
== END 2019-12-28 13:05 | DRG 871 ==
LOC: ER 14:19 → OBSVTOIN 20:55 → MS 20:55
PROVIDERS: ADMIT Nurse Practitioner Acute Care; ATTEND Nurse Practitioner
PROC: XW033E5 Introduction of Remdesivir Anti-infective into Peripheral Vein, Percutaneous Approach, New Technology Group 5 (ICD-10-PCS; principal; 2019-12-26)
DX: A41.59 Other Gram-negative sepsis (principal); U07.1 COVID-19; N39.0 Urinary tract infection, site not specified; E87.1 Hypo-osmolality and hyponatremia; M33.20 Polymyositis, organ involvement unspecified; J12.89 Other viral pneumonia; B96.1 Klebsiella pneumoniae [K. pneumoniae] as the cause of diseases classified elsewhere; E87.6 Hypokalemia; F03.90 Unspecified dementia, unspecified severity, without behavioral disturbance, psychotic disturbance, mood disturbance, and anxiety; E11.9 Type 2 diabetes mellitus without complications; M85.80 Other specified disorders of bone density and structure, unspecified site; Z85.51 Personal history of malignant neoplasm of bladder; Z88.5 Allergy status to narcotic agent; Z87.891 Personal history of nicotine dependence; Z79.899 Other long term (current) drug therapy

== ENCOUNTER 2019-12-29 03:07 | Inpatient (IN) | payer MEDICARE, OTHER ==
--- NOTE | 2019-12-29 03:52 | ED.PDOC ---
History of Present Illness - General Chief Complaint: Respiratory Problem Stated Complaint: Hypertension/COVID-19 Time Seen by Provider: 12/29/19 03:29 Source: patient, RN notes reviewed, Vital Signs reviewed, group home records, old records - History of Present Illness Initial Comments: This is a 79-year-old female sent from the group home via EMS for hypotension and unable to obtain O2 sats. She was just discharged in the hospital earlier today after she was admitted for COVID-19 infection and polymyositis. They were unable to obtain an O2 sat or blood pressure at the group home, EMS was able to get a blood pressure in the 70s, but were unable to get a temperature or an O2 sat. Allergies/Adverse Reactions: Allergies Morphine Allergy (Verified 12/16/19 12:11) Home Medications: Ambulatory Orders Lisinopril 10 mg PO DAILY 02/12/12 Atorvastatin Calcium [Lipitor] 10 mg PO BEDTIME 10/24/19 Escitalopram [Lexapro] 10 mg PO DAILY 10/24/19 Acetaminophen [Tylenol] 325 mg PO Q6H PRN #60 tab 10/25/19 Ondansetron Tab [Zofran Tab] 4 mg PO Q6H PRN #30 tab 10/25/19 Furosemide 40 mg PO DAILY 12/16/19 Melatonin 9 mg PO BEDTIME 12/16/19 Paroxetine HCl [Paxil] 10 mg PO DAILY 12/16/19 Potassium Chloride 20 meq PO DAILY 12/16/19 Albuterol Sulfate Nebs [Proventil Nebs] 2.5 mg INH Q4HR PRN 12/25/19 Prednisone 20 mg PO SANDRA-OTH-DAY 12/25/19 Sodium Phosphates [Enema] 1 amanda [place] DAILY PRN 12/25/19 Tylenol Pm Extra Strength 500-25 mg 2 tablet PO BEDTIME PRN 12/25/19 Albuterol Inhaler [Ventolin Hfa Inhaler] 2 puff INH QID #1 inh 12/28/19 Bifidobacterium Infantis [Align] 4 mg PO BID 30 Days #60 cap 12/28/19 Ciprofloxacin [Cipro] 500 mg PO BID 10 Days #20 tab 12/28/19 guaiFENesin ER TAB [Mucinex Tab] 600 mg PO BID 30 Days #60 tab 12/28/19 Review of Systems - Review of Systems Constitutional: Denies: chills, fever EENTM: States: nose congestion Respiratory: States: short of breath. Denies: orthopnea, wheezing Cardiology: Denies: chest pain, edema Gastrointestinal/Abdominal: States: nausea. Denies: abdominal pain, diarrhea, vomiting Genitourinary: Denies: dysuria, hematuria Musculoskeletal: States: muscle pain. Denies: joint pain Skin: Denies: lesions, lumps Neurological: Denies: numbness, tingling Endocrine: States: no symptoms reported Hematologic/Lymphatic: States: no symptoms reported Past Medical History (General) - Patient Medical History Hx Seizures: No Hx Stroke: No Hx Dementia: Yes Hx Asthma: No Hx of COPD: Yes Hx Cardiac Disorders: No Hx Congestive Heart Failure: No Hx Pacemaker: No Hx Hypertension: Yes Hx Thyroid Disease: No Hx Diabetes: Yes Hx Gastroesophageal Reflux: No Hx Renal Disease: No Hx Cancer: No Hx of HIV: No Hx Hepatitis C: No Hx MRSA: No - Vaccination History Hx Tetanus, Diphtheria Vaccination: Yes - 3 years ago Hx Influenza Vaccination: Yes Hx Pneumococcal Vaccination: Yes - Social History Hx Tobacco Use: Yes - quit 5 years ago after 50 years of smoking Hx Chewing Tobacco Use: No Hx Alcohol Use: No Hx Substance Use: No Hx Substance Use Treatment: No Hx Depression: Yes Hx Physical Abuse: No Hx Emotional Abuse: No Hx Suspected Abuse: No - Female History Patient : No Family Medical History - Family History Mother Family History: Unknown Living Status: Hx Family Hypertension: Yes Physical Exam - Physical Exam General Appearance: Alert, Frail, Ill Appearing Ears, Nose, Throat: hearing grossly normal, normal ENT inspection Neck: non-tender, full range of motion Respiratory: chest non-tender, lungs clear, normal breath sounds Cardiovascular/Chest: normal peripheral pulses, regular rate, rhythm, no edema, no gallop Peripheral Pulses: radial,right: 1+, radial,left: 1+ Gastrointestinal/Abdominal: non tender, soft Back Exam: normal inspection Extremity: normal range of motion, non-tender, normal inspection Neurologic: no motor/sensory deficits, alert, oriented x 3 Skin Exam: normal color, warm/dry Progress - Progress Progress: 12/29/19 03:52 I made a single attempt at an IV in the left basilic vein. Patient then refused any further IV attempts. She repeatedly said "no sticks." She then stated that she does not want any further attempts at resuscitation. She requested to be made DNR and does not want any further attempts made to prolong her life. I explained that with her blood pressure as low as it is the this is likely a life ending illness. She stated that she understands and accepts that. She is alert, oriented x3. She appears to have capacity to refuse medical care and understands and accepts that refusal will likely result in her . She signed an inpatient DNR form. We will attempt to arrange for hospice at the group home. We will also notify daughters of her likely moribund condition. Will continue to monitor and treat symptoms. 12/29/19 04:28 Multiple attempts by nursing staff to reach daughters Vidya Weiner by phone regarding the severity of patient's illness. They have not called back at this time. Patient is now complaining of leg pain. P.o. Dilaudid has been ordered. 12/29/19 06:28 Patient continues slow decline. Sats continue to drop, heart rate is increasing. We are medicating her pain and her anxiety. We have made multiple phone calls to daughters to notify them of her condition and to allow them to see the patient in the hospital if they desire. We have not had a return phone call at this time.We will continue to honor the patient's wishes to be made comfortable with no heroic measures, no IV, no other medications other than to control her symptoms. 12/29/19 06:57 Still no call from daughters. Will begin process of arranging for hospice for end-of-life care. Further care will be transitioned to Dr. Yanez. Departure - Departure Clinical Impression: COVID-19, Encounter for hospice care Time of Disposition: 03:50 Disposition: Discharge Hospice In-Home Srv Condition: Poor Departure Forms: ED Discharge - Pt. Copy, Patient Portal Self Enrollment Diet: resume usual diet Activity: increase activity as tolerated Referrals: KATERINA OSMAN MD [Primary Care Provider] - 1-2 Days Home Medications: Ambulatory Orders Lisinopril 10 mg PO DAILY 02/12/12 Atorvastatin Calcium [Lipitor] 10 mg PO BEDTIME 10/24/19 Escitalopram [Lexapro] 10 mg PO DAILY 10/24/19 Acetaminophen [Tylenol] 325 mg PO Q6H PRN #60 tab 09/18/20 Ondansetron Tab [Zofran Tab] 4 mg PO Q6H PRN #30 tab 10/25/19 Furosemide 40 mg PO DAILY 12/16/19 Melatonin 9 mg PO BEDTIME 12/16/19 Paroxetine HCl [Paxil] 10 mg PO DAILY 12/16/19 Potassium Chloride 20 meq PO DAILY 12/16/19 Albuterol Sulfate Nebs [Proventil Nebs] 2.5 mg INH Q4HR PRN 12/25/19 Prednisone 20 mg PO SANDRA-OTH-DAY 12/25/19 Sodium Phosphates [Enema] 1 amanda [place] DAILY PRN 12/25/19 Tylenol Pm Extra Strength 500-25 mg 2 tablet PO BEDTIME PRN 12/25/19 Albuterol Inhaler [Ventolin Hfa Inhaler] 2 puff INH QID #1 inh 12/28/19 Bifidobacterium Infantis [Align] 4 mg PO BID 30 Days #60 cap 12/28/19 Ciprofloxacin [Cipro] 500 mg PO BID 10 Days #20 tab 12/28/19 guaiFENesin ER TAB [Mucinex Tab] 600 mg PO BID 30 Days #60 tab 12/28/19
[2019-12-29] MEDS ORDERED: HYDROmorphone HCL 2 MG TAB PO ONE ×2 (04:25→05:39)
[2019-12-29] MEDS ORDERED: HYDROmorphone HCL 2 MG TAB ONE (04:29)
[2019-12-29] MEDS ORDERED: ONDANSETRON 4 MG TAB PO ONE (04:33)
[2019-12-29] MEDS ORDERED: ONDANSETRON ODT 8 MG TAB ONE (04:33)
[2019-12-29] MEDS: HYDROmorphone HCL 2 MG TAB PO ONE ×2 (04:34→04:51)
[2019-12-29 04:39] VITALS: TEMP 97.3
[2019-12-29] MEDS ORDERED: LORazepam 0.5 MG TAB PO ONE (05:06)
[2019-12-29 05:32] VITALS: BP 69/45; O2SAT 89
[2019-12-29] MEDS ORDERED: ZIPRASIDONE 20 MG CAP ONE (06:05)
[2019-12-29] MEDS ORDERED: LORazepam 0.5 MG TAB ONE (06:10)
[2019-12-29] MEDS ORDERED: LORazepam 1 MG TAB PO ONE (06:10)
[2019-12-29] MEDS ORDERED: ZIPRASIDONE 20 MG CAP PO SCH (07:30)
[2019-12-29] MEDS ORDERED: MORPHINE 20 MG/ML PO PRN ×2 (12:26→12:48)
[2019-12-29] MEDS ORDERED: MORPHINE 20 MG/ML ONE (13:22)
[2019-12-29] MEDS ORDERED: ONDANSETRON ODT 8 MG TAB SL PRN (13:31)
--- NOTE | 2019-12-30 08:10 | SSS ---
SUPERVISING PHYSICIAN: Severino Brar MD ADMISSION DIAGNOSIS: 1. COVID-19 pneumonitis. 2. Sepsis related to urinary tract infection as well as COVID. 3. Polymyositis, recent diagnosis. DISCHARGE DIAGNOSIS: 1. . HISTORY OF PRESENT ILLNESS: This is a 79-year-old patient who was actually admitted last week for COVID-19 pneumonitis. She also had sepsis with a urinary tract infection. She came to the Emergency Room due to hypertension and they were unable to obtain an O2 saturation. She had just been discharged and she did not want anything to be done other than to keep her comfortable. Her daughters were contacted, they came to the hospital and they all made the patient a care and comfort only. Initially, the patient was admitted to the hospital for comfort measures. After admission, we had planned to contact other family members and there were plans to put her on hospice care tomorrow. She was admitted to the hospital and shortly after that, she . Her daughters were at the bedside. PAST MEDICAL HISTORY: 1. Polymyositis, recent diagnosis. 2. Diabetes mellitus. 3. Bladder cancer. 4. Osteopenia. PAST SURGICAL HISTORY: 1. Hysterectomy. 2. Appendectomy. 3. Tonsillectomy. 4. Bilateral tubal ligation. 5. Colonoscopy. OUTPATIENT MEDICATIONS: Per the EMR. ALLERGIES: MORPHINE. FAMILY HISTORY: Noncontributory. SOCIAL HISTORY: She lives at [facility]. She is . She has two daughters. There was history of cigarette smoking, but she quit in 2012. Otherwise, there was no ETOH or illicit drug use. REVIEW OF SYSTEMS: Deferred due to the patient's physical status. PHYSICAL EXAMINATION: VITAL SIGNS: Initial vital signs showed temperature 97.3, heart rate 113, blood pressure 67/52, respiratory rate 28, O2 saturation 88% on 2 liters. Shortly thereafter, she became agonal just prior to expiration. Physical examination deferred. DISCHARGE PLAN: The patient at 13:35. She was pronounced at that time. Her primary care physician is Myke Palacios MD. The body is to be released to [facility]. DISCHARGE MEDICATIONS: None. #[id number] [facility]
== END 2019-12-29 13:35 | disposition expired | DRG 951 ==
LOC: ER 03:07 → OBSVTOIN 11:53 → MS 11:53
PROVIDERS: ADMIT Nurse Practitioner Acute Care; ATTEND Nurse Practitioner Acute Care
DX: Z51.5 Encounter for palliative care (principal); A41.89 Other specified sepsis; U07.1 COVID-19; J12.89 Other viral pneumonia; N39.0 Urinary tract infection, site not specified; M85.80 Other specified disorders of bone density and structure, unspecified site; Z66 Do not resuscitate; Z88.5 Allergy status to narcotic agent; Z87.891 Personal history of nicotine dependence